=== PATIENT | female | born 1965 | race Caucasian/White ===

== ENCOUNTER → 2016-05-18 | Outpatient (CLI) | payer OTHER ==
[2016-05-18 08:31] LABS: Basophils # (A) 0.1 k/uL (0-0.2); Basophils % (A) 1 %; CH 31.8; Eosinophils # (A) 0.1 k/uL (0-0.7); Eosinophils % (A) 2 %; HCT 38.6 % (34.0-46.0); HDW 2.34; HGB 12.6 gm/dL (11.4-16.0); Luc # (Auto) 0.09; Luc % (Auto) 2; Lymphocytes # (A) 1.1 k/uL (1.0-4.8); Lymphocytes % (A) 20 %; MCH 31.5 pg (25.0-35.0); MCHC 32.6 g/dL (31.0-37.0); MCV 96.6 fL (80.0-100.0); Mean Platelet Volume 7.2; Monocytes # (A) 0.4 k/uL (0-1.0); Monocytes % (A) 7 %; Neutrophils # (A) 3.6 k/uL (1.3-7.7); Neutrophils % (A) 68 %; RBC 3.99 m/uL (3.80-5.40); RDW 12.1 % (11.5-15.5); WBC 5.3 k/uL (3.8-10.6); WBC (Perox) 5.54
== END | disposition home or self-care (01) ==
LOC: LABPAT 07:42
PROVIDERS: ATTEND Obstetrics & Gynecology
DX: Z01.810 Encounter for preprocedural cardiovascular examination (principal)
CPT/HCPCS: 85025

== ENCOUNTER → 2016-05-18 | Outpatient (CLI) | payer OTHER | END | disposition home or self-care (01) | LOC: LABWHC1 07:41 | PROVIDERS: ATTEND Obstetrics & Gynecology | DX: E78.5 Hyperlipidemia, unspecified (principal) | CPT/HCPCS: 36415; 80061; 84439; 84443 ==

== ENCOUNTER 2016-05-23 06:31 | Day surgery (SDC) | payer BC, OTHER ==
--- NOTE | 2016-05-20 07:37 | P.HPOB ---
History of Present Illness H&P Date: 05/20/16 Chief Complaint: Endometrial thickening, Tamoxifen use This patient is a pleasant 50 yr female who has a history of breast cancer and has been on Tamoxifen for recurrence prevention. Surveillance ultrasounds have been normal with the exception of her most recent ultrasound which showed the endometrium to be 1.3cm. She had a D&C in 2013 for abnormal cells and surgical findings at the time showed cervical stenosis and Ashermans Syndrome (?from C/S). Patient has had no bleeding and we discussed surveillance with serial ultrasounds versus a repeat D&C, she is requesting a repeat D&C. Review of Systems Constitutional: Denies chills, Denies fever Ears, nose, mouth and throat: Reports neck lump (Known lymphadenopathy), Denies headache, Denies sore throat Cardiovascular: Denies chest pain, Denies shortness of breath Respiratory: Denies cough Gastrointestinal: Denies abdominal pain, Denies diarrhea, Denies nausea, Denies vomiting Genitourinary: Denies dysuria, Denies hematuria Menstruation: Reports amenorrhea Musculoskeletal: Denies myalgias Integumentary: Denies pruritus, Denies rash Neurological: Denies numbness, Denies weakness Psychiatric: Denies anxiety, Denies depression Past Medical History Past Medical History: Cancer Additional Past Medical History / Comment(s): 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 BREAST CANCER 2009 WITH CHEMO AND RADIATION. 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 Right leg wound surgery. Hysteroscopy D&C 2013 Past Anesthesia/Blood Transfusion Reactions: No Reported Reaction, Family History of Problems w/ Anesthesia Additional Past Anesthesia/Blood Transfusion Reaction / Comment(s): FATHER HAD DIFFICULTY WAKING UP. Past Psychological History: No Psychological Hx Reported Smoking Status: Never smoker Past Alcohol Use History: Occasional Past Drug Use History: None Reported - Past Family History Father Family Medical History: Cancer Additional Family Medical History / Comment(s): Prostate and skin cancer. Mother Family Medical History: Cancer Additional Family Medical History / Comment(s): Skin cancer. Sister(s) Family Medical History: Cancer Additional Family Medical History / Comment(s): BREAST CA Medications and Allergies Home Medications Medication Instructions Recorded Confirmed Type Cholecalciferol [Vitamin D3] 2 cap PO DAILY 03/11/14 03/18/14 History Flaxseed [Flaxseed Oil] 2,000 mg PO DAILY 03/11/14 03/18/14 History Multivit with Calcium,Iron,Min 1 tab PO DAILY 03/11/14 03/18/14 History [Women's Daily Multivitamin] Tamoxifen [Nolvadex] 20 mg PO HS 03/11/14 03/20/14 History Allergies Allergy/AdvReac Type Severity Reaction Status Date / Time codeine AdvReac Intermediate Vomiting Verified 03/18/14 16:35 Exam - OBG Physical Exam Abdomen: bowel sounds normal, no diffuse tenderness, no bruit present, no guarding noted, no hepatomegaly, no splenomegaly, no mass Vulva: both: normal Vagina: atrophic mucosa Cervix: no lesion, no discharge Uterus: normal size Adnexa: both: normal Results Ultrasound on April 20 showed endometrium to be 1.3cm Assessment and Plan (1) Endometrial thickening on ultra sound Narrative/Plan: This is a pleasant 50yr female with endometrial thickening on surveillance ultrasound for Tamoxifen use. Patient has requested hysteroscopy and D&C. She also has known cervical stenosis and Asherman's Syndrome of unknown etiology. Plan is hysteroscopy and D&C. She and I have discussed this surgery and risks: infection, bleeding, possible uterine perforation. She also understands that due to her cervical stenosis/Asherman's Syndrome that she is at increased risks or I maybe unable to get into the uterine cavity. All of the patient's questions were answered and a written consent was obtained. Status: Acute (2) Use of tamoxifen (Nolvadex) Status: Acute (3) Asherman's syndrome Status: Acute
[2016-05-20 11:25] VITALS: BMI 23.9
[~2016-05-23 06:31] MED LIST: DEXAMETHASONE SOD PHOSPHATE 10 MG/ML 1 ML VIAL IV ONE; HYDROmorphone 1 MG/ML 1 ML SYRINGE IVP PRN; LACTATED RINGERS 1,000 ML IV SCH; LIDOCAINE 1% 20 ML VIAL (10MG/ML) FOR IV START INTRADERMA PRN; ONDANSETRON 4 MG/2 ML VIAL IVP ONE; Pre Op ABX Message 1 EACH MISC MISCELLANE ONE; SCOPOLAMINE 1.5MG/72HR PATCH TRANSDERM ONE
[2016-05-23] MEDS ORDERED: LIDOCAINE 1% 20 ML VIAL (10MG/ML) FOR IV START INTRADERMA ONE (07:02)
[2016-05-23] MEDS ORDERED: PROPOFOL 10 MG/ML 20 ML VIAL IV ONE (07:23)
[2016-05-23] MEDS ORDERED: LIDOCAINE 1% INJ 10MG/ML (20 ML MDV) ONE (07:23)
[2016-05-23] MEDS ORDERED: fentaNYL (PF) 50 MCG/ML 2 ML AMP ONE (07:23)
[2016-05-23] MEDS ORDERED: KETOROLAC 30 MG/ML 1 ML VIAL ONE (07:23)
[2016-05-23] MEDS ORDERED: MIDAZOLAM 2 MG/2 ML VIAL ONE (07:23)
--- NOTE | 2016-05-23 07:53 | P.OP ---
Date of Procedure: 05/23/16 Preoperative Diagnosis: #1: Abnormal endometrial thickening on tamoxifen. #2: Cervical stenosis and known Asherman syndrome Postoperative Diagnosis: Same Procedure(s) Performed: #1: Hysteroscopy. #2: Dilation and curettage. Anesthesia: MAC Surgeon: Kaden Hanson Estimated Blood Loss (ml): 10 Pathology: other (Endocervical and uterine curettings.) Condition: stable Disposition: PACU Indications for Procedure: Please see dictated H&P for intimate details of this patient's admission. In brief summary this is a pleasant 50-year-old 1 para 0 female who presents for hysteroscopy D&C secondary to abnormal endometrial thickening on ultrasound and tamoxifen use. Patient also has no cervical stenosis and Asherman syndrome, supposedly from previous section. Patient understands this surgery and risks including risks of infection, bleeding, possible uterine perforation. All the patient's questions are answered written consent is obtained. Operative Findings: This patient had a very atrophic appearing endocervix and uterine cavity with evidence of previous scarring as noted on previous hysteroscopy. There was no evidence of any abnormal growths or precancerous lesions. Description of Procedure: This patient is taken to the operating room where she is laid in the supine position. She subsequent undergoes general mask anesthesia without incident. With an adequate level of anesthesia she's placed in the dorsal lithotomy position. She has a vaginal, perineal, prep and drape. With this done examination under anesthesia shows uterus to be mid position and very small. The bladder is drained for 10 mL of clear urine. A weighted speculum was placed in the posterior vagina. The anterior lip of the cervix is grabbed with an Allis clamp. At this time I tried to place a uterine sound and the uterine cavity however cannot be passed. Using a hemostat to open up the cervix. I then bring the hysteroscope into the field and using saline solution, I used the hysteroscope to guide up into the uterine cavity. This is done with care and attention. I am able to enter the lower uterine segment and uterine cavity and then finally unable to see the entire uterine cavity. It appears very atrophic and scarred as previously described. There is no evidence of any abnormal growths, fibroids, or polyps. I did already do an endocervical curetting, at this time I dilate the cervix more to allow a curette easily and the uterine cavity and a vigorous sharp curettage of all 4 quadrants is done. There is scant tissue consistent with endometrial atrophy. With this done the procedure is terminated. The Allis clamp and weighted speculum was removed. All counts are correct 3. There are no complications. Patient is awakened from anesthesia and taken to the recovery room in satisfactory condition.
[2016-05-23 07:59] VITALS: TEMP 97.4
[2016-05-23 08:55] VITALS: RESP 16
[2016-05-23 09:28] VITALS: BP 105/67; PULSE 62
== END 2016-05-23 09:33 | disposition home or self-care (01) ==
LOC: OR 06:31
PROVIDERS: ATTEND Obstetrics & Gynecology
DX: R93.8 Abnormal findings on diagnostic imaging of other specified body structures (principal); N85.6 Intrauterine synechiae; N88.2 Stricture and stenosis of cervix uteri; N85.9 Noninflammatory disorder of uterus, unspecified; Z79.810 Long term (current) use of selective estrogen receptor modulators (SERMs); Z85.3 Personal history of malignant neoplasm of breast; Z92.21 Personal history of antineoplastic chemotherapy; Z92.3 Personal history of irradiation; Z90.11 Acquired absence of right breast and nipple; Z79.899 Other long term (current) drug therapy; Z79.1 Long term (current) use of non-steroidal anti-inflammatories (NSAID)
CPT/HCPCS: 88305; 58558; J2250; J1100; J2405; J2001; J3010; J1885; J1170; J2704

== ENCOUNTER → 2016-10-11 | Outpatient (CLI) | payer OTHER ==
--- NOTE | 2016-10-12 07:28 | MM ---
Reason for exam: follow-up at short interval from prior study. Last mammogram was performed 8 months ago. History: Patient has history of other cancer at age 48, has history of breast cancer at age 44, and had first child at age 40. Family history of breast cancer in maternal grandmother at age 82, breast cancer in sister at age 47, and breast cancer in paternal grandmother at age 65. Malignant US right guided VAD of the right breast, December 24, 2009. Mastectomy of the right breast, 2009. Chemotherapy, 2009. Radiation therapy, 2009. Excisional biopsy of the right breast, 1986. Took hormonal contraceptives for 2 years beginning at age 41. Taking antineoplastic for 6 years. Physical Findings: Nurse did not find any significant physical abnormalities on exam. MG 3D Diag Mammo W/Cad LT CC and MLO view(s) were taken of the left breast. Prior study comparison: February 18, 2016, left breast MG 3d diag mammo w/cad LT. The breast tissue is heterogeneously dense. This may lower the sensitivity of mammography. No significant new findings when compared with previous films. These results were verbally communicated with the patient and result sheet given to the patient on 10/11/16. ASSESSMENT: Benign, BI-RAD 2 RECOMMENDATION: Follow-up diagnostic mammogram of the left breast in 1 month.
== END | disposition home or self-care (01) ==
LOC: RADMAMWWP 14:17
PROVIDERS: ATTEND Internal Medicine Hematology & Oncology
DX: R92.8 Other abnormal and inconclusive findings on diagnostic imaging of breast (principal); Z85.3 Personal history of malignant neoplasm of breast; Z90.11 Acquired absence of right breast and nipple
CPT/HCPCS: G0206; G0279

== ENCOUNTER → 2017-03-15 | Outpatient (CLI) | payer OTHER ==
--- NOTE | 2017-03-15 15:18 | NM ---
EXAMINATION TYPE: NM bone scan whole body DATE OF EXAM: 03/15/2017 COMPARISON: Prior bone scan dated 01/07/2010 HISTORY: Breast cancer and back pain Delayed whole-body scanning was performed following the injection of 28 mCi Tc 99m MDP. Images acqui red 3 hours post injection. FINDINGS: Soft tissue uptake is normal. Mild spinal curvature is again noted. Uptake within the knee, ankles, k nees, wrists, shoulders is likely degenerative. No abnormal increased or decreased radiopharmaceutica l uptake to suggest metastatic disease. IMPRESSION: Essentially stable exam. No suspicious abnormality is evident. Degenerative changes.
== END | disposition home or self-care (01) ==
LOC: RADNMMAIN 10:23
PROVIDERS: ATTEND Internal Medicine Hematology & Oncology
DX: R93.7 Abnormal findings on diagnostic imaging of other parts of musculoskeletal system (principal); C50.411 Malignant neoplasm of upper-outer quadrant of right female breast; M54.9 Dorsalgia, unspecified
CPT/HCPCS: 78306; A9503

== ENCOUNTER → 2017-08-19 | Outpatient (CLI) | payer OTHER ==
[2017-08-19 11:13] LABS: T4, Free (Free Thyroxine) 1.06 ng/dL (0.78-2.19)
== END | disposition home or self-care (01) ==
LOC: LABWHC1 10:20
PROVIDERS: ATTEND Obstetrics & Gynecology
DX: E78.4 Other hyperlipidemia (principal)
CPT/HCPCS: 36415; 80061; 82947; 84439; 84443; 84479

== ENCOUNTER → 2017-09-26 | Outpatient (CLI) | payer OTHER ==
[2017-09-26 11:27] LABS: Basophils % (A) 1 %; Eosinophils # (A) 0.2 k/uL (0-0.7); Eosinophils % (A) 3 %; HCT 36.3 % (34.0-46.0); HGB 11.7 gm/dL (11.4-16.0); Lymphocytes # (A) 1.1 k/uL (1.0-4.8); Lymphocytes % (A) 18 %; MCH 30.2 pg (25.0-35.0); MCHC 32.4 g/dL (31.0-37.0); MCV 93.3 fL (80.0-100.0); Mean Platelet Volume 6.6; Monocytes # (A) 0.4 k/uL (0-1.0); Monocytes % (A) 7 %; Neutrophils # (A) 4.1 k/uL (1.3-7.7); Neutrophils % (A) 69 %; Platelet Count 261 k/uL (150-450); RBC 3.89 m/uL (3.80-5.40); RDW 13.1 % (11.5-15.5); WBC 5.9 k/uL (3.8-10.6)
[2017-09-26 11:38] LABS: Appearance,Urine Clear (Clear); Bilirubin,Urine Negative (Negative); Blood,Urine Negative (Negative); Color,Urine Colorless; Glucose,Urine (UA) Negative (Negative); Ketones,Urine Negative (Negative); Leukocyte Esterase,Urine Trace (Negative); Nitrite,Urine Negative (Negative); Protein,Urine Negative (Negative); Specific Gravity,Urine 1.002 (1.001-1.035); Squamous Epithelial Cell,Urine <1 /hpf (0-4); Urobilinogen,Urine <2.0 mg/dL (<2.0); WBC,Urine 3 /hpf (0-5)
[2017-09-26 11:54] LABS: T4, Free (Free Thyroxine) 1.07 ng/dL (0.78-2.19)
[2017-09-26 16:51] LABS: Vitamin D 25 Hydroxy 65.7 ng/mL (30.0-100.0)
[2017-09-26 17:14] LABS: Thyroid Peroxidase Antibodies <28.0 U/mL (0.0-60.0)
[2017-09-26 17:23] LABS: Hemoglobin A1C 5.6 % (4.0-6.0); Immunoglobulin E 4.53 IU/mL (0.00-114.00); Iron Saturation 12.94 (12.00-45.00)
[2017-09-27 15:05] LABS: Ceruloplasmin 46.2 mg/dL (20.0-60.0); Immunoglobulin A 43.4 mg/dL (60.0-350.0)
== END | disposition home or self-care (01) ==
LOC: LABWHC1 10:29
PROVIDERS: ATTEND Nurse Practitioner Family
DX: E55.9 Vitamin D deficiency, unspecified (principal); R73.09 Other abnormal glucose; R68.89 Other general symptoms and signs; I70.90 Unspecified atherosclerosis; D89.82 Autoimmune lymphoproliferative syndrome [ALPS]; D68.8 Other specified coagulation defects; R53.83 Other fatigue; M79.7 Fibromyalgia; E34.9 Endocrine disorder, unspecified; E78.00 Pure hypercholesterolemia, unspecified; E78.5 Hyperlipidemia, unspecified; E03.9 Hypothyroidism, unspecified; D84.9 Immunodeficiency, unspecified; D89.9 Disorder involving the immune mechanism, unspecified; D50.9 Iron deficiency anemia, unspecified; N95.1 Menopausal and female climacteric states; E88.9 Metabolic disorder, unspecified; E58 Dietary calcium deficiency; E59 Dietary selenium deficiency; E60 Dietary zinc deficiency; E61.6 Vanadium deficiency; T56.94XA Toxic effect of unspecified metal, undetermined, initial encounter
CPT/HCPCS: 36415; 81001; 82306; 82378; 82390; 82525; 82607; 82728; 82784; 82785; 83036; 83090; 83540; 83550; 83695; 83735; 84132; 84207; 84425; 84439; 84443; 84481; 84482; 84630; 85025; 85384; 86141; 86300; 86376; 86800

== ENCOUNTER → 2017-10-20 | Outpatient (CLI) | payer OTHER ==
[2017-10-21 12:44] LABS: Immunoglobulin A 39.3 mg/dL (60.0-350.0)
[2017-10-23 14:30] LABS: Protein, Total 7.4 g/dL (6.2-8.2)
[2017-10-24 13:00] LABS: ALT 26 U/L (9-52); AST 20 U/L (14-36); Albumin 4.2 g/dL (3.5-5.0); Alkaline Phosphatase 76 U/L (38-126); Anion Gap 10 mmol/L; Blood Urea Nitrogen 15 mg/dL (7-17); Calcium 9.6 mg/dL (8.4-10.2); Carbon Dioxide 27 mmol/L (22-30); Chloride 103 mmol/L (98-107); Cholesterol 122 mg/dL (<200); Glucose 119 mg/dL (74-99); LDH 360 U/L (313-618); Phosphorus 4.3 mg/dL (2.5-4.5); Potassium 4.5 mmol/L (3.5-5.1); Sodium 140 mmol/L (137-145); Total Bilirubin 0.3 mg/dL (0.2-1.3); Total Protein 8.1 g/dL (6.3-8.2); Uric Acid 5.4 mg/dL (3.7-7.4)
== END | disposition home or self-care (01) ==
LOC: LABWHC1 08:07
PROVIDERS: ATTEND Internal Medicine
DX: C85.80 Other specified types of non-Hodgkin lymphoma, unspecified site (principal)
CPT/HCPCS: 36415; 80053; 82465; 82784; 83615; 84100; 84165; 84550; 85810; 86334

== ENCOUNTER → 2018-04-19 | Outpatient (CLI) | payer OTHER ==
--- NOTE | 2018-04-19 08:21 | MM ---
Reason for exam: additional evaluation requested from prior study. Last mammogram was performed 1 year ago. History: Patient has history of other cancer at age 48, has history of breast cancer at age 44, and had first child at age 40. Family history of breast cancer in maternal grandmother at age 82, breast cancer in sister at age 47, breast cancer in paternal grandmother at age 65, and breast cancer in cousin. Malignant US right guided VAD of the right breast, December 24, 2009. Mastectomy of the right breast, 2009. Chemotherapy, 2009. Radiation therapy, 2009. Excisional biopsy of the right breast, 1986. Took hormonal contraceptives for 2 years beginning at age 41. Taking antineoplastic beginning at age 44. Physical Findings: Nurse did not find any significant physical abnormalities on exam. MG 3D Diag Mammo W/Cad LT CC and MLO view(s) were taken of the left breast. Prior study comparison: April 13, 2017, left breast MG 3d follow up no charge LT. October 11, 2016, left breast MG 3d diag mammo w/cad LT. The breast tissue is heterogeneously dense. This may lower the sensitivity of mammography. There are benign appearing round, diffuse and grouped calcifications in the left breast. Asymmetric breast tissue left medial aspect, stable. There is no discrete abnormality. Large left axillary lymph nodes correlate with lymphoma known to patient. These results were verbally communicated with the patient and result sheet given to the patient on 04/19/18. ASSESSMENT: Benign, BI-RAD 2 RECOMMENDATION: Follow-up diagnostic mammogram of the left breast in 1 year.
== END | disposition home or self-care (01) ==
LOC: RADMAMWWP 07:24
PROVIDERS: ATTEND Internal Medicine Hematology & Oncology
DX: Z08 Encounter for follow-up examination after completed treatment for malignant neoplasm (principal); Z85.3 Personal history of malignant neoplasm of breast; Z90.11 Acquired absence of right breast and nipple
CPT/HCPCS: 77061; 77065

== ENCOUNTER → 2019-04-23 | Outpatient (CLI) | payer OTHER ==
--- NOTE | 2019-04-23 08:27 | MM ---
Reason for exam: additional evaluation requested from prior study. Last mammogram was performed 1 year ago. History: Patient is postmenopausal, has history of other cancer at age 48, has history of breast cancer at age 44, and had first child at age 40. Family history of breast cancer in maternal grandmother at age 82, breast cancer in sister at age 47, breast cancer in paternal grandmother at age 65, and breast cancer in cousin. Malignant US right guided VAD of the right breast, December 24, 2009. Mastectomy of the right breast, 2009. Chemotherapy, 2009. Radiation therapy, 2009. Excisional biopsy of the right breast, 1986. Took hormonal contraceptives for 2 years beginning at age 41. Took antineoplastic for 7 years beginning at age 44. Physical Findings: Nurse did not find any significant physical abnormalities on exam. MG 3D Diag Mammo W/Cad LT CC and MLO view(s) were taken of the left breast. Prior study comparison: April 19, 2018, left breast MG 3d diag mammo w/cad LT. April 13, 2017, left breast MG 3d follow up no charge LT. The breast tissue is heterogeneously dense. This may lower the sensitivity of mammography. Benign appearing calcifications in the left breast. No suspicious abnormality. Left axillary adenopathy. These results were verbally communicated with the patient and result sheet given to the patient on 04/23/19. ASSESSMENT: Benign, BI-RAD 2 RECOMMENDATION: Follow-up diagnostic mammogram of the left breast in 1 year. Manage on a clinical basis with regard to left axillary adenopathy, known lymphoma. Recommend follow up with oncology.
== END | disposition home or self-care (01) ==
LOC: RADMAMWWP 07:37
PROVIDERS: ATTEND Internal Medicine Hematology & Oncology
DX: Z85.3 Personal history of malignant neoplasm of breast (principal)
CPT/HCPCS: 77061; 77065

== ENCOUNTER → 2020-06-05 | Outpatient (CLI) | payer OTHER ==
--- NOTE | 2020-06-05 11:58 | MM ---
Reason for exam: additional evaluation requested from prior study. Last mammogram was performed 1 year and 1 month ago. History: Patient is postmenopausal, has history of other cancer at age 48, has history of breast cancer at age 44, and had first child at age 40. Family history of breast cancer in maternal grandmother at age 82, breast cancer in sister at age 47, breast cancer in paternal grandmother at age 65, and breast cancer in cousin. Malignant US right guided VAD of the right breast, December 24, 2009. Mastectomy of the right breast, 2009. Chemotherapy, 2009. Radiation therapy, 2009. Excisional biopsy of the right breast, 1986. Took hormonal contraceptives for 2 years beginning at age 41. Took antineoplastic for 8 years beginning at age 44. Physical Findings: Nurse did not find any significant physical abnormalities on exam. MG 3D Diag Mammo W/Cad LT CC and MLO view(s) were taken of the left breast. Prior study comparison: April 23, 2019, left breast MG 3d diag mammo w/cad LT. April 19, 2018, left breast MG 3d diag mammo w/cad LT. The breast tissue is heterogeneously dense. This may lower the sensitivity of mammography. Stable benign calcifications. Enlarged lymph nodes consistent with lymph nodes. No significant new findings when compared with previous films. These results were verbally communicated with the patient and result sheet given to the patient on 06/05/20. ASSESSMENT: Benign, BI-RAD 2 RECOMMENDATION: Follow-up diagnostic mammogram of the left breast in 1 year. Manage patient on a clinical basis.
== END | disposition home or self-care (01) ==
LOC: RADMAMWWP 10:55
PROVIDERS: ATTEND Internal Medicine Hematology & Oncology
DX: Z08 Encounter for follow-up examination after completed treatment for malignant neoplasm (principal); Z85.3 Personal history of malignant neoplasm of breast
CPT/HCPCS: 77061; 77065

== ENCOUNTER → 2020-08-11 | Outpatient (CLI) | payer OTHER ==
[2020-08-11 07:16] LABS: African American GFR (CKD) >90 (>60 ml/min/1.73 sqM); Blood Urea Nitrogen 13 mg/dL (7-17); Non-African American GFR(CKD) >90 (>60 ml/min/1.73 sqM)
--- NOTE | 2020-08-11 08:51 | CT ---
EXAMINATION TYPE: CT soft tissue neck w con DATE OF EXAM: 08/11/2020 COMPARISON: None HISTORY: Lymphoma CT DLP: 400.91 mGycm CONTRAST: CT scan of the neck is performed with IV Contrast, patient injected with 100 mL of Isovue 300. Contrast enhanced CT of the neck was performed from the skull base through the lung apices. AIRWAY: The supraglottic, glottic, and subglottic portions of the airway appear patent and free of mass. SALIVARY GLANDS: The submandibular and parotid glands are free of mass or inflammatory process. THYROID GLAND: No nodules or masses seen. LYMPH NODES: There are multiple lymph nodes noted within the internal jugular chains bilaterally the largest on the left measures 1.4 cm and the largest on the right and 1 cm. Posterior triangle also de monstrates multiple lymph nodes measuring up to 1 cm on the left and 71 cm on the right. Lymph node i s noted adjacent to the left parotid gland measuring 1 cm. Supraclavicular adenopathy is also noted m easuring up to 1.7 cm on the left and up to 1 cm on the right. LUNG APICES: No nodule or mass is seen. OTHER: Vascular structures are patent. No significant degenerative change of the cervical spine. N o abscess seen. IMPRESSION: Adenopathy throughout the neck are compatible with the provided history of lymphoma.
--- NOTE | 2020-08-11 08:58 | CT ---
EXAMINATION TYPE: CT ChestAbdPelvis w con DATE OF EXAM: 08/11/2020 COMPARISON: January 07, 2010 HISTORY: lymphoma CT DLP: 1463.09 mGycm CONTRAST: CT scan of the chest, abdomen and pelvis is performed with Oral Contrast and with IV Contrast, patien t injected with 100 mL of Isovue 300. CT Chest: LUNGS: The lungs are clear and free of infiltrate or atelectasis. No pulmonary nodule or mass is det ected. No pleural effusion or CT evidence of interstitial lung disease. MEDIASTINUM: Thoracic aorta is of normal caliber. The heart is not enlarged. Multiple paratracheal, AP window and subcarinal lymph nodes all measuring 1 cm or less. Para-aortic lymph node measuring 1 cm. HILAR STRUCTURES: No evidence for mass. No hilar adenopathy is appreciated. OTHER: Multiple left axillary lymph nodes measuring up to 1.4 cm. A few subcentimeter right axillary lymph nodes seen. Right cardiophrenic adenopathy measuring 1.[address] ABDOMEN AND PELVIS FINDINGS: LIVER/GB: No calcified gallstones. No space occupying hepatic lesion. Biliary tree is of normal ca liber. PANCREAS: No inflammation. No distinct mass. SPLEEN: No splenic enlargement. No lesion seen. ADRENALS: No nodule. No thickening. KIDNEYS/BLADDER: No hydronephrosis. No nephrolithiasis. No disctinct renal mass. BOWEL: Normal appendix. Normal bowel caliber. No inflammation. GENITAL ORGANS: No gross abnormality. LYMPH NODES: Adenopathy in the region of the gastrohepatic ligament measuring 1.8 cm. Periportal lymp h node mass measuring 4.6 x 1.7 cm with an additional mass measuring 3 x 2.1 cm. Celiac axis adenopat hy measuring up to 1.9 cm. Left periaortic lymph nodes measuring up to 1.6 cm. Adenopathy anterior to the distal IVC measuring 2.6 cm. Aortoenteric caval adenopathy measuring 2 cm. Multiple lymph nodes within the small bowel mesentery measuring up to 1 cm. Right inguinal adenopathy measuring 4.3 cm. Le ft inguinal adenopathy measuring up to 1.1 cm. Right internal iliac adenopathy measuring 3.2 x 2.9 cm . Left iliac chain adenopathy measuring less than 1 cm. AORTA: No significant abnormality. OSSEOUS STRUCTURES: No significant abnormality is seen. OTHER: No significant additional abnormality is seen. IMPRESSION: 1. Adenopathy throughout the chest abdomen and pelvis compatible with the provided history of lymphom a.
== END | disposition home or self-care (01) ==
LOC: RADCTMAIN 06:29
PROVIDERS: ATTEND Internal Medicine Hematology & Oncology
DX: Z03.89 Encounter for observation for other suspected diseases and conditions ruled out (principal); C85.98 Non-Hodgkin lymphoma, unspecified, lymph nodes of multiple sites; C50.411 Malignant neoplasm of upper-outer quadrant of right female breast; R59.0 Localized enlarged lymph nodes; Z88.5 Allergy status to narcotic agent
CPT/HCPCS: 82565; 84520; 70491; 71260; 74177; 36415; Q9967

== ENCOUNTER → 2021-04-28 | Outpatient (CLI) | payer OTHER ==
--- NOTE | 2021-04-28 19:58 | BD ---
EXAMINATION TYPE: Axial Bone Density DATE OF EXAM: 04/28/2021 COMPARISON: 2017 CLINICAL HISTORY: Postmenopausal screening Height: 63 Weight: 132.8 FRAX RISK QUESTIONS: Alcohol (3 or more units per day): no Family History (Parent hip fracture): yes Glucocorticoids (More than 3mos): no (Ex: prednisone, prednisolone, methylprednisolone, dexamethasone, and hydrocortisone). History of Fracture in Adulthood: no Secondary Osteoporosis: 1. Type 1 Diabetes: no 2. Hyperthyroidism: no 3. Menopause before 45: yes 4. Malnutrition: no 5. Chronic liver disease: no Rheumatoid Arthritis: yes Current Tobacco Use: no RISK FACTORS HISTORY OF: Surgery to Spine/Hip(right/left)/Wrist (right/left): no Family History of Osteoporosis: no Active: yes Diet low in dairy products/other sources of calcium: yes Postmenopausal woman: yes Lost more than 2 inches in height since high school: no MEDICATIONS: none Additional History: EXAM MEASUREMENTS: Bone mineral densitometry was performed using the [employer] ([employer]G) System. Bone mineral density as measured about the Lumbar spine is: ----- L1-L4(G/cm2): 1.097 T Score Values are as follows: ----- L2: -0.6 ----- L3: 1.1 ----- L4: -1.1 ----- L1-L4: -0.7 Bone mineral density has: decreased -2.2 % since study of: 04.13.2017 Bone mineral density about the R hip (g/cm2): 0.896 Bone mineral density about the L hip (g/cm2): 0.895 T Score values are as follows: -----R Neck: -1.0 -----L Neck: -1.0 -----R Total: -0.4 -----L Total: -0.3 Bone mineral density has: decreased -2.9 % since study of: 04.13.2017 IMPRESSION: Normal (Values between +1 and -1 indicate normal bone mass). However, note that measurements border on osteopenia. Consider repeating this study in 5 years or sooner if there is some new clinical indic ation. NOTE: T-SCORE=SD OF THE YOUNG ADULT MEAN.
== END | disposition home or self-care (01) ==
LOC: RADBDWWP 08:21
PROVIDERS: ATTEND Obstetrics & Gynecology
DX: Z78.0 Asymptomatic menopausal state (principal)
CPT/HCPCS: 77080

== ENCOUNTER → 2021-06-07 | Outpatient (CLI) | payer OTHER ==
--- NOTE | 2021-06-08 08:12 | MM ---
Reason for exam: screening (asymptomatic). Last mammogram was performed 1 year ago. History: Patient is postmenopausal, has history of other cancer at age 48, has history of breast cancer at age 44, and had first child at age 40. Family history of breast cancer in maternal grandmother at age 82, breast cancer in paternal grandmother at age 65, breast cancer in cousin, and breast cancer in sister at age 47. Malignant US right guided VAD of the right breast, December 24, 2009. Mastectomy of the right breast, 2009. Chemotherapy, 2009. Radiation therapy, 2009. Excisional biopsy of the right breast, 1986. Took hormonal contraceptives for 2 years beginning at age 41. Took antineoplastic for 8 years beginning at age 44. Physical Findings: A clinical breast exam by your physician is recommended on an annual basis and results should be correlated with mammographic findings. MG 3D Scr Wesley Unilateral W/Cad Bilateral CC and MLO view(s) were taken. Prior study comparison: June 05, 2020, left breast MG 3d diag mammo w/cad LT. April 23, 2019, left breast MG 3d diag mammo w/cad LT. April 19, 2018, left breast MG 3d diag mammo w/cad LT. October 11, 2016, left breast MG 3d diag mammo w/cad LT. The breast tissue is heterogeneously dense. This may lower the sensitivity of mammography. There are benign appearing round calcifications in the left breast. Stable massive left axillary adenopathy redemonstrated, correlates with known lymphoma CT 08/11/20. ASSESSMENT: Benign, BI-RAD 2 RECOMMENDATION: Follow-up diagnostic mammogram of the left breast in 1 year.
== END | disposition home or self-care (01) ==
LOC: RADMAMWWP 11:14
PROVIDERS: ATTEND Internal Medicine Hematology & Oncology
DX: Z12.31 Encounter for screening mammogram for malignant neoplasm of breast (principal); C50.411 Malignant neoplasm of upper-outer quadrant of right female breast; Z85.3 Personal history of malignant neoplasm of breast; N95.1 Menopausal and female climacteric states
CPT/HCPCS: 77067

== ENCOUNTER → 2022-08-17 | Outpatient (CLI) | payer OTHER ==
--- NOTE | 2022-08-17 14:10 | MM ---
Reason for Exam: Clinical finding. Last mammogram was performed 1 year(s) and 3 month(s) ago. Patient History: Menarche at age 14. First Full-Term at age 40. Late child-bearing (after 30). Postmenopausal. Other cancer, age 48. Breast cancer, age 44. Hormonal Contraceptives, starting at age 41 for 2 years. 1986, Excisional Biopsy on the Right side. 2009, Mastectomy on the Right side. 12/24/2009, Malignant Core Biopsy on the right side. 2009, Chemotherapy. 2009, Radiation Therapy. Paternal grandmother had breast cancer, age 65. Maternal grandmother had breast cancer, age 82. Maternal cousin had breast cancer. Sister had breast cancer, age 47. Prior Study Comparison: 04/23/2019 Left Diagnostic Mammogram, [facility]. 06/05/2020 Left Diagnostic Mammogram, [facility]. 06/07/2021 Bilateral Screening Mammogram, [facility]. Tissue Density: Left: The breast tissue is heterogeneously dense. This may lower the sensitivity of mammography. Findings: Analyzed By CAD. No new suspicious mass or architectural distortion within the left breast. No suspicious group of calcifications. Benign-appearing round calcifications redemonstrated within the left breast. Stable massive left axillary adenopathy redemonstrated and correlating to known lymphoma. Overall Assessment: Benign, BI-RAD 2 Management: Screening Mammogram of the left breast in 1 year. A clinical breast exam by your physician is recommended on an annual basis and results should be correlated with mammographic findings. This exam should not preclude additional follow-up of suspicious palpable abnormalities. Results were given to the patient verbally at the time of exam. Electronically signed and approved by: Quincy Gutierrez D.O.
== END | disposition home or self-care (01) ==
LOC: RADMAMWWP 07:39
PROVIDERS: ATTEND Internal Medicine
DX: C50.911 Malignant neoplasm of unspecified site of right female breast (principal); Z78.0 Asymptomatic menopausal state; Z80.3 Family history of malignant neoplasm of breast
CPT/HCPCS: 77061; 77065

== ENCOUNTER → 2023-08-29 | Outpatient (CLI) | payer OTHER ==
--- NOTE | 2023-08-30 13:38 | MM ---
Reason for Exam: Hx of breast cancer, mastectomy. Last screening mammogram was performed 12 month(s) ago. Patient History: Menarche at age 14. First Full-Term at age 40. Late child-bearing (after 30). Postmenopausal. Other cancer, age 48. Breast cancer, age 44. Hormonal Contraceptives, starting at age 41 for 2 years. 1986, Excisional Biopsy on the Right side. 2009, Mastectomy on the Right side. 12/24/2009, Malignant Core Biopsy on the right side. 2009, Chemotherapy. 2009, Radiation Therapy. Paternal grandmother had breast cancer, age 65. Maternal grandmother had breast cancer, age 82. Maternal cousin had breast cancer. Sister had breast cancer, age 47. Prior Study Comparison: 04/13/2017 Left Diagnostic Mammogram, [facility]. 04/19/2018 Left Diagnostic Mammogram, [facility]. 04/23/2019 Left Diagnostic Mammogram, [facility]. 06/05/2020 Left Diagnostic Mammogram, [facility]. 06/07/2021 Bilateral Screening Mammogram, [facility]. 08/17/2022 Left MG 3D diag mammo w/cad LT, [facility]. Tissue Density: Left: The breasts are heterogeneously dense, which may obscure small masses. lymphoma. Findings: Analyzed By CAD. There is no suspicious group of microcalcifications or new suspicious mass in either breast. Left axillary adenopathy redemonstrated and strict clinical correlation recommended. Overall Assessment: Benign, BI-RAD 2 Management: Screening Mammogram of both breasts in 1 year. . Patient should continue monthly self-breast exams. A clinical breast exam by your physician is recommended on an annual basis. This exam should not preclude additional follow-up of suspicious palpable abnormalities. Note on Kelly scores and lifetime risk: 1. A Kelly score greater than 3% is considered moderate risk. If this is the case, consider specialist referral to assess eligibility for a risk reducing agent. 2. If overall lifetime risk for the development of breast cancer is 20% or higher, the patient may qualify for future screening with alternating mammogram and breast MRI. Electronically signed and approved by: Bhavik Meyer M.D. Radiologis
== END | disposition home or self-care (01) ==
LOC: RADMAMWWP 07:21
PROVIDERS: ATTEND Internal Medicine Hematology & Oncology
DX: Z12.31 Encounter for screening mammogram for malignant neoplasm of breast (principal); C85.98 Non-Hodgkin lymphoma, unspecified, lymph nodes of multiple sites; C50.411 Malignant neoplasm of upper-outer quadrant of right female breast; D47.2 Monoclonal gammopathy; F41.9 Anxiety disorder, unspecified; Z80.3 Family history of malignant neoplasm of breast; Z78.0 Asymptomatic menopausal state
CPT/HCPCS: 77067

== ENCOUNTER 2023-11-14 16:48 | Inpatient (IN) | payer OTHER ==
--- NOTE | 2023-11-14 17:27 | ED ---
Allergic Reaction HPI - General Source: patient, RN notes reviewed Mode of arrival: ambulatory Limitations: no limitations <Yolanda Helton - Last Filed: 11/14/23 17:23> <Eder Dotson - Last Filed: 11/14/23 21:05> - General Chief complaint: Allergic Reaction Stated complaint: allergic reaction Time Seen by Provider: 11/14/23 17:23 - History of Present Illness Initial Comments: Quick Note: This is a 58-year-old female who presents to the emergency department for a possible allergic reaction. Patient receives chemotherapy every 26 days and received her third round of chemotherapy today. Shortly after receiving it she started to get short of breath and dizzy. They noticed that her blood pressure dropped and she developed a fever. They gave her fluids and applied oxygen for her symptoms. She has not had any reactions to chemo prior to today. (Yolanda Helton) Dictation was produced using schoox dictation software. please excuse any grammatical, word or spelling errors. Chief Complaint: 58-year-old female presents to the emergency department after infusion reaction History of Present Illness: Patient is a 58-year-old female she has past medical history of lymphoma. She was at the infusion center today at infusion with Rituxan. Patient had a reaction all of a sudden started to become tachycardic and fever and chills. Rituxan infusion was completed patient was started on a different chemo medication when she became slightly worse. The infusion was discontinued patient was brought to the emergency department. Dr. Almeida was contacted and evaluated the patient. I did speak with Dr. Almeida her oncologist states that patient's symptoms likely from infusion reaction. Patient states that she feels some chills. Denies any shortness of breath. No chest pain. The ROS documented in this emergency department record has been reviewed and confirmed by me. Those systems with pertinent positive or negative responses have been documented in the HPI. All other systems are other negative and/or noncontributory. (Eder Dotson) - Related Data Home Medications Medication Instructions Recorded Confirmed Multivit with Calcium,Iron,Min 1 tab PO DAILY 03/11/14 05/23/16 [Women's Daily Multivitamin] Tamoxifen [Nolvadex] 20 mg PO DAILY 03/11/14 05/23/16 Biocleanse 2 tab PO DAILY 05/20/16 05/23/16 L.acidoph,Paracasei, B.lactis 2 each PO DAILY 05/20/16 05/23/16 [Probiotic] Previous Rx's Medication Instructions Recorded Ibuprofen [Motrin] 600 mg PO Q6HR PRN #40 tab 05/23/16 Allergies Allergy/AdvReac Type Severity Reaction Status Date / Time codeine AdvReac Intermediate Vomiting Verified 04/22/22 10:44 Review of Systems ROS Other: All systems not noted in ROS Statement are negative. <Yolanda Helton - Last Filed: 11/14/23 17:23> ROS Other: All systems not noted in ROS Statement are negative. <Eder Dotson - Last Filed: 11/14/23 21:05> ROS Statement: Those systems with pertinent positive or pertinent negative responses have been documented in the HPI. 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 BREAST CANCER 2009 WITH CHEMO AND RADIATION, STATES NEW DIAGNOSIS OF MARGINAL ZONE LYMPHOMA. ABNORMAL PAP SMEAR. History of Any Multi-Drug Resistant Organisms: None Reported Past Surgical History: Breast Surgery Additional Past Surgical History / Comment(s): Right breast mastectomy in 2009. Right leg wound surgery. Past Anesthesia/Blood Transfusion Reactions: Family History of Problems w/ Anesthesia, No Reported Reaction Additional Past Anesthesia/Blood Transfusion Reaction / Comment(s): FATHER HAD DIFFICULTY WAKING UP. Past Psychological History: No Psychological Hx Reported Smoking Status: Never smoker Past Alcohol Use History: Occasional Past Drug Use History: None Reported - Past Family History Father Family Medical History: Cancer Additional Family Medical History / Comment(s): Prostate and skin cancer. Mother Family Medical History: Cancer Additional Family Medical History / Comment(s): Skin cancer. Sister(s) Family Medical History: Cancer Additional Family Medical History / Comment(s): BREAST CA <Yolanda Helton - Last Filed: 11/14/23 17:23> General Exam Limitations: no limitations <Yolanda Helton - Last Filed: 11/14/23 17:23> <Eder Dotson - Last Filed: 11/14/23 21:05> - General Exam Comments Initial Comments: Visual Physical Exam Vital signs reviewed General: Well-appearing, nontoxic, no acute distress. Head: Normocephalic, atraumatic Eyes: PERRLA, EOMI ENT: Airway patent Chest: Nonlabored breathing Skin: No visual rash, normal skin tone Neuro: Alert and oriented 3 Musculoskeletal: No gross abnormalities (Yolanda Helton) PHYSICAL EXAM: General Impression: Alert and oriented x3, not in acute distress HEENT: Normocephalic atraumatic, extra-ocular movements intact, pupils equal and reactive to light bilaterally, mucous membranes moist. Cardiovascular: Heart regular rate and rhythm Chest: Able to complete full sentences, no retractions, no tachypnea Abdomen: abdomen soft, non-tender, non-distended, no organomegaly Musculoskeletal: Pulses present and equal in all extremities, no peripheral edema Motor: no focal deficits noted Neurological: CN II-XII grossly intact, no focal motor or sensory deficits noted Skin: Intact with no visualized rashes Psych: Normal affect and mood (Eder Dotson) Course Vital Signs 11/14/23 11/14/23 11/14/23 17:16 18:31 18:45 Temperature 100.8 F H Pulse Rate 131 H 125 H Pulse Rate [ Chief Security Officer ] Respiratory 18 20 20 Rate Blood Pressure 85/45 110/60 Blood Pressure [Left Arm Supine] O2 Sat by Pulse 99 100 Oximetry 11/14/23 11/14/23 19:00 20:55 Temperature 100.5 F H 102.3 F H Pulse Rate 125 H Pulse Rate [ 124 H Chief Security Officer ] Respiratory 20 18 Rate Blood Pressure 111/54 Blood Pressure 99/56 [Left Arm Supine] O2 Sat by Pulse 98 Oximetry Medical Decision Making <Yolanda Helton - Last Filed: 11/14/23 17:23> - Lab Data Result diagrams: 11/14/23 17:43 11/14/23 17:43 <Eder Dotson - Last Filed: 11/14/23 21:05> - Medical Decision Making I performed the QuickNote portion of this chart. Signed Yolanda Helton PA-C. (Yolanda Helton) Was pt. sent in by a medical professional or institution ([facility], FUR GRADER, urgent care, hospital, or longterm...) When possible be specific @ -No Did you speak to anyone other than the patient for history (EMS, parent, family, police, friend...)? What history was obtained from this source @ -Spoke with Dr. Almeida regarding patient's infusion reaction Did you review nursing and triage notes (agree or disagree)? Why? @ -I reviewed and agree with nursing and triage notes Were old charts reviewed (outside hosp., previous admission, EMS record, old EKG, old radiological studies, urgent care reports/EKG's, longterm records)? Report findings @ -No old charts were reviewed Differential Diagnosis (chest pain, altered mental status, abdominal pain women, abdominal pain men, vaginal bleeding, musculoskeletal, weakness, fever, dyspnea, syncope, headache, dizziness, GI bleed, back pain, seizure, CVA, palpatations, mental health)? @ -Differential Fever: Pneumonia, viral URI, endocarditis, myocarditis, pericarditis, otitis, sinusitis, peritonsillar Abscess, retropharyngeal Abscess, epiglottitis, peritonitis, appendicitis, Laura cystitis, diverticulitis, hepatitis, colitis, UTI, PID, TOA, pyelonephritis, prostatitis, epididymitis, meningitis, encephalitis, pulmonary embolism, CVA, thyroid storm, pancreatitis, adrenal crisis, cavernous sinus thrombosis, this is not meant to be an all-inclusive list. EKG interpreted by me (3pts min.). @ -See above X-rays interpreted by me (1pt min.). @ -None done CT interpreted by me (1pt min.). @ -None done U/S interpreted by me (1pt. min.). @ -None done What testing was considered but not performed or refused? (CT, X-rays, U/S, labs)? Why? @ -None What meds were considered but not given or refused? Why? @ -None Was smoking cessation discussed for >3mins.? @ -No Were there social determinants of health that impacted care today? How? (Homelessness, low income, unemployed, alcoholism, drug addiction, transportation, low edu. Level, literacy, decrease access to med. care, assisted, rehab)? @ -No Was there de-escalation of care discussed even if they declined (Discuss DNR or withdrawal of care, Hospice)? DNR status @ -No What co-morbidities impacted this encounter? (DM, HTN, Smoking, COPD, CAD, Cancer, CVA, ARF, Chemo, Hep., AIDS, mental health diagnosis, sleep apnea, morbid obesity)? @ -Lymphoma Was patient admitted / discharged? Hospital course, mention meds given and route, prescriptions, significant lab abnormalities, going to OR and other pertinent info. @ -58-year-old female presents emergency department for infusion reaction. Vital signs upon arrival shows temperature 100.8. Repeat vital signs shows temperature of 102.3. Her heart rate is still sustained tachycardia at 120. Laboratory evaluation is within acceptable limits. Mild hypomagnesemia 1.5. Patient given Tylenol for fever. At this point she does not have any focal localizing symptoms blood cultures pending. Given patient's vitals she will be admitted for further care and monitoring. Case discussed with Dr. López request patient given dose of cefepime. Did you discuss the management of the patient with other professionals (professionals i.e. , PA, FUR GRADER, lab, RT, psych nurse, social media editor, corporate lawyer, teacher, business enterprise officer, case management specialist)? Give summary @ -See above Was critical care preformed (if so, how long)? @ -No Undiagnosed new problem with uncertain prognosis? @ -No Drug Therapy requiring intensive monitoring for toxicity (Heparin, Nitro, Insulin, Cardizem)? @ -No Were any procedures done? @ -No Diagnosis/symptom? Acute, or Chronic, or Acute on Chronic? Uncomplicated (without systemic symptoms) or Complicated (systemic symptoms)? @ -Infusion reaction Side effects of treatment? @ -No Exacerbation, Progression, or Severe Exacerbation? @ -No Poses a threat to life or bodily function? How? (Chest pain, USA, AR, pneumonia, PE, COPD, DKA, ARF, appy, cholecystitis, CVA, Diverticulitis, Homicidal, Suicidal, threat to staff... and all critical care pts) @ -yes (Eder Dotson) - Lab Data Lab Results 11/14/23 11/14/23 11/14/23 Range/Units 17:34 17:43 17:43 WBC 6.3 (3.8-10.6) k/uL RBC 3.17 L (3.80-5.40) m/uL Hgb 9.3 L (11.4-16.0) gm/dL Hct 28.9 L (34.0-46.0) % MCV 91.0 (80.0-100.0) fL MCH 29.3 (25.0-35.0) pg MCHC 32.2 (31.0-37.0) g/dL RDW 17.0 H (11.5-15.5) % Plt Count 41 L (150-450) k/uL MPV 10.6 Neutrophils % 92 % Lymphocytes % 2 % Monocytes % 5 % Eosinophils % 1 % Basophils % 0 % Neutrophils # 5.8 (1.3-7.7) k/uL Lymphocytes # 0.1 L (1.0-4.8) k/uL Monocytes # 0.3 (0-1.0) k/uL Eosinophils # 0.1 (0-0.7) k/uL Basophils # 0.0 (0-0.2) k/uL Manual Slide Review Performed Hypochromasia Slight Anisocytosis Slight Sodium 137 (137-145) mmol/L Potassium 3.6 (3.5-5.1) mmol/L Chloride 108 H (98-107) mmol/L Carbon Dioxide 19 L (22-30) mmol/L Anion Gap 10 mmol/L BUN 22 H (7-17) mg/dL Creatinine 0.58 (0.52-1.04) mg/dL Est GFR (CKD-EPI)AfAm >90 (>60 ml/min/1.73 sqM) Est GFR (CKD-EPI)NonAf >90 (>60 ml/min/1.73 sqM) Glucose 160 H (74-99) mg/dL Plasma Lactic Acid Jaden (0.7-2.0) mmol/L Calcium 8.8 (8.4-10.2) mg/dL Phosphorus 4.0 (2.5-4.5) mg/dL Magnesium 1.5 L (1.6-2.3) mg/dL Total Bilirubin 0.7 (0.2-1.3) mg/dL AST 44 H (14-36) U/L ALT 19 (4-34) U/L Alkaline Phosphatase 98 (38-126) U/L Total Protein 7.3 (6.3-8.2) g/dL Albumin 3.7 (3.5-5.0) g/dL TSH 1.620 (0.465-4.680) mIU/L Urine Color Light Yellow Urine Appearance Clear (Clear) Urine pH 5.0 (5.0-8.0) Ur Specific [place] 1.018 (1.001-1.035) Urine Protein Trace H (Negative) Urine Glucose (UA) Negative (Negative) Urine Ketones Negative (Negative) Urine Blood Trace H (Negative) Urine Nitrite Negative (Negative) Urine Bilirubin Negative (Negative) Urine Urobilinogen <2.0 (<2.0) mg/dL Ur Leukocyte Esterase Negative (Negative) Urine WBC 3 (0-5) /hpf Urine Bacteria Rare H (None) /hpf Urine Mucus Rare H (None) /hpf 11/14/23 Range/Units 18:42 WBC (3.8-10.6) k/uL RBC (3.80-5.40) m/uL Hgb (11.4-16.0) gm/dL Hct (34.0-46.0) % MCV (80.0-100.0) fL MCH (25.0-35.0) pg MCHC (31.0-37.0) g/dL RDW (11.5-15.5) % Plt Count (150-450) k/uL MPV Neutrophils % % Lymphocytes % % Monocytes % % Eosinophils % % Basophils % % Neutrophils # (1.3-7.7) k/uL Lymphocytes # (1.0-4.8) k/uL Monocytes # (0-1.0) k/uL Eosinophils # (0-0.7) k/uL Basophils # (0-0.2) k/uL Manual Slide Review Hypochromasia Anisocytosis Sodium (137-145) mmol/L Potassium (3.5-5.1) mmol/L Chloride (98-107) mmol/L Carbon Dioxide (22-30) mmol/L Anion Gap mmol/L BUN (7-17) mg/dL Creatinine (0.52-1.04) mg/dL Est GFR (CKD-EPI)AfAm (>60 ml/min/1.73 sqM) Est GFR (CKD-EPI)NonAf (>60 ml/min/1.73 sqM) Glucose (74-99) mg/dL Plasma Lactic Acid Jaden 1.5 (0.7-2.0) mmol/L Calcium (8.4-10.2) mg/dL Phosphorus (2.5-4.5) mg/dL Magnesium (1.6-2.3) mg/dL Total Bilirubin (0.2-1.3) mg/dL AST (14-36) U/L ALT (4-34) U/L Alkaline Phosphatase (38-126) U/L Total Protein (6.3-8.2) g/dL Albumin (3.5-5.0) g/dL TSH (0.465-4.680) mIU/L Urine Color Urine Appearance (Clear) Urine pH (5.0-8.0) Ur Specific [place] (1.001-1.035) Urine Protein (Negative) Urine Glucose (UA) (Negative) Urine Ketones (Negative) Urine Blood (Negative) Urine Nitrite (Negative) Urine Bilirubin (Negative) Urine Urobilinogen (<2.0) mg/dL Ur Leukocyte Esterase (Negative) Urine WBC (0-5) /hpf Urine Bacteria (None) /hpf Urine Mucus (None) /hpf Disposition <Yolanda Helton - Last Filed: 11/14/23 17:23> Decision Time: 21:05 <Eder Dotson - Last Filed: 11/14/23 21:05> Clinical Impression: Infusion reaction Disposition: ADMITTED IP TO THIS HOSP Condition: Fair Referrals: Desi López MD [Primary Care Provider] - 1-2 days
[2023-11-14 18:18] LABS: Anisocytosis Slight; Basophils % (A) 0 %; Eosinophils # (A) 0.1 k/uL (0-0.7); Eosinophils % (A) 1 %; HCT 28.9 % (34.0-46.0); HGB 9.3 gm/dL (11.4-16.0); Hypochromasia Slight; Lymphocytes # (A) 0.1 k/uL (1.0-4.8); Lymphocytes % (A) 2 %; MCH 29.3 pg (25.0-35.0); MCHC 32.2 g/dL (31.0-37.0); Mean Platelet Volume 10.6; Monocytes # (A) 0.3 k/uL (0-1.0); Monocytes % (A) 5 %; Neutrophils # (A) 5.8 k/uL (1.3-7.7); Neutrophils % (A) 92 %; RBC 3.17 m/uL (3.80-5.40); WBC 6.3 k/uL (3.8-10.6)
[2023-11-14 18:34] LABS: ALT 19 U/L (4-34); AST 44 U/L (14-36); African American GFR (CKD) >90 (>60 ml/min/1.73 sqM); Albumin 3.7 g/dL (3.5-5.0); Alkaline Phosphatase 98 U/L (38-126); Anion Gap 10 mmol/L; Blood Urea Nitrogen 22 mg/dL (7-17); Calcium 8.8 mg/dL (8.4-10.2); Carbon Dioxide 19 mmol/L (22-30); Chloride 108 mmol/L (98-107); Glucose 160 mg/dL (74-99); Magnesium 1.5 mg/dL (1.6-2.3); Non-African American GFR(CKD) >90 (>60 ml/min/1.73 sqM); Potassium 3.6 mmol/L (3.5-5.1); Sodium 137 mmol/L (137-145); Total Bilirubin 0.7 mg/dL (0.2-1.3); Total Protein 7.3 g/dL (6.3-8.2)
[2023-11-14] MEDS: SODIUM CHLORIDE 0.9% 1,000 ML IV STA (18:35)
[2023-11-14 18:50] LABS: Platelet Count 41 k/uL (150-450)
[2023-11-14 18:51] LABS: Appearance,Urine Clear (Clear); Bacteria,Urine Rare /hpf; Bilirubin,Urine Negative (Negative); Blood,Urine Trace (Negative); Color,Urine Light Yellow; Glucose,Urine (UA) Negative (Negative); Ketones,Urine Negative (Negative); Leukocyte Esterase,Urine Negative (Negative); Mucus,Urine Rare /hpf; Nitrite,Urine Negative (Negative); Protein,Urine Trace (Negative); Specific Gravity,Urine 1.018 (1.001-1.035); Urobilinogen,Urine <2.0 mg/dL (<2.0); WBC,Urine 3 /hpf (0-5)
[2023-11-14] MEDS: MAGNESIUM OXIDE 400 MG TAB PO STA (20:56)
[2023-11-14] MEDS: ACETAMINOPHEN TAB 500 MG TAB PO STA (20:59)
[2023-11-14] MEDS ORDERED: NALOXONE 0.4 MG/ML 1 ML VIAL IV PRN (21:01)
[2023-11-14] MEDS: SODIUM CHLORIDE 0.9% 1,000 ML IV SCH (21:08)
[2023-11-14] MEDS: CEFEPIME 2 GM in SODIUM CHLORIDE 0.9% 100 ML IVPB STA (21:11)
[2023-11-15] MEDS: SODIUM CHLORIDE 0.9% 500 ML DEHP FREE BAG IV STA (04:04)
[2023-11-15] MEDS: SODIUM CHLORIDE 0.9% 500 ML BAG IV STA (04:13)
[2023-11-15] MEDS ORDERED: SODIUM CHLORIDE 0.9% 500 ML 500 ML IV ONE (04:15)
[2023-11-15] MEDS: CEFEPIME 2 GM in SODIUM CHLORIDE 0.9% 100 ML IVPB SCH (18:10)
--- NOTE | 2023-11-15 20:36 | P.CONS ---
History of Present Illness - Reason for Consult Consult date: 11/15/23 lymphoma Requesting physician: Eder Dotson - Chief Complaint Mab infusion reaction - History of Present Illness Mrs. Horton is a 58 yo female pt of Dr. Almeida with a PMH of rt breast cancer diagnosed in December 2009. Clinical stage T2,N0, ER+(50%)/TX+(5%), HER2/AVEL ne gative. Treated at [facility] in [place] with 6 cycles of neoadjuvant TAC followed by right mastectomy and sentinel nodes biopsy in June 2010. Found to have residual T1b (0.6cm) invasive cancer in the breast. She received adjuvant radiation therapy. BRCA testing were negative. S he started tamoxifen in around spring. 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 CT CAP April 2014 revealed mediastinal nodes involvement measuring 2.4 x 1.3cm, paratracheal nodes measuring 1.4 x 0.8cm, mildly enlarged mesenteric nodes, enlarged portocaval nodes measuring 3.[address] CAP 04/20/2016 at [facility] revealed some progression of her adenopathies compared to prior CT scan in 2013. Breast cancer index done in August 2016 revealed low likelihood of recurrence, she was given option to switch to AI, continue tamoxifen or discontinue endocrine therapy all together. She initially decided to continue tamoxifen then, in October/2017, she decided to stop it and declined further endocrine therapy with AI. 08/11/[address] scan of neck,chest/abdomen/pelvis revealed adenopathies (per report, slightly larger than CT done in 2015). She cont on monitoring and CT CAP 08/14/2023 showed progression of her retroperitoneal nodes. 08/28/2023 PET scan showed low SUV uptake in generalized adenopathies, largest 3.6 cm in inguinal nodes. Did not think there was transformation to more aggressive lymphoma but, because of progressive LAD treatment was offered. She also was evaluated by Dr. Madison for microscopic hematuria, found to have a small bladder tumor so, she wanted that taken care of 1st. This was resected, she has f/u later this year. She was started on Rituxan and treanda 10/18. She was receiving C2 D1 in the office when she began to feel lightheaded. Treatment was stopped, fluids, symptoms resolved adn she was restarted. She was on treanda when she began shaking, treatment was stopped, VS showed low BP, she was sent into hospital for infusion reaction. She had a fever on admit of 102. 3F, pancultures pending, she has been started on abx. She denied SOB, tongue swelling, hives or itching. She has had some urinary urgency, no hematuria or dysuria. No cough, sinus c/o, or other s/s infection. She feels ok at this time. 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 BREAST CANCER 2009 WITH CHEMO AND RADIATION, STATES NEW DIAGNOSIS OF MARGINAL ZONE LYMPHOMA. ABNORMAL PAP SMEAR. History of Any Multi-Drug Resistant Organisms: None Reported Past Surgical History: Breast Surgery Additional Past Surgical History / Comment(s): Right breast mastectomy in 2009. Right leg wound surgery. Past Anesthesia/Blood Transfusion Reactions: Family History of Problems w/ Anesthesia, No Reported Reaction Additional Past Anesthesia/Blood Transfusion Reaction / Comm: FATHER HAD DIFFICULTY WAKING UP. Past Psychological History: No Psychological Hx Reported Smoking Status: Never smoker Past Alcohol Use History: Occasional Past Drug Use History: None Reported - Past Family History Father Family Medical History: Cancer Additional Family Medical History / Comment(s): Prostate and skin cancer. Mother Family Medical History: Cancer Additional Family Medical History / Comment(s): Skin cancer. Sister(s) Family Medical History: Cancer Additional Family Medical History / Comment(s): BREAST CA Medications and Allergies Home Medications Medication Instructions Recorded Confirmed Type No Known Home Medications 11/14/23 11/14/23 History Allergies Allergy/AdvReac Type Severity Reaction Status Date / Time codeine AdvReac Intermediate Vomiting Verified 11/14/23 21:06 Physical Exam Vitals: Vital Signs Temp Pulse Pulse Resp BP BP Pulse Ox 11/15/23 08:56 105 H 20 97/55 97 11/15/23 07:51 98.7 F 11/15/23 06:42 100.1 F H 104 H 16 93/45 96 11/15/23 04:00 99 F 97 18 83/49 98 11/15/23 00:57 99.6 F 105 H 18 84/42 96 11/14/23 20:55 102.3 F H 124 H 18 99/56 11/14/23 19:00 100.5 F H 125 H 20 111/54 98 11/14/23 18:45 20 11/14/23 18:31 125 H 20 110/60 100 11/14/23 17:16 100.8 F H 131 H 18 85/45 99 Intake and Output 11/14/23 11/15/23 11/15/23 22:59 06:59 14:59 Other: Weight 58.967 kg - Constitutional General appearance: average body habitus, cooperative, no acute distress - EENT Eyes: anicteric sclerae, EOMI ENT: hearing grossly normal, normal oropharynx - Neck Neck: no lymphadenopathy - Respiratory Respiratory: bilateral: CTA - Cardiovascular Rhythm: regular Heart sounds: normal: S1, S2 Abnormal Heart Sounds: no systolic murmur, no diastolic murmur, no rub, no S3 Gallop, no S4 Gallop, no click, no other foot Peripheral Edema: bilateral: Trace - Gastrointestinal General gastrointestinal: no absent bowel sounds, no decreased bowel sounds, no distended, no hepatomegaly, no hyperactive bowel sounds, normal bowel sounds, no organomegaly, no rigid, no scaphoid, soft, no splenomegaly, no tenderness, no umbilical hernia, no ventral hernia - Integumentary Integumentary: normal - Neurologic Neurologic: CNII-XII intact - Musculoskeletal Musculoskeletal: strength equal bilaterally - Psychiatric Psychiatric: A&O x's 3, appropriate affect, intact judgment & insight Results CBC & Chem 7: 11/14/23 17:43 11/14/23 17:43 Labs: Abnormal Lab Results - Last 24 Hours (Table) 11/14/23 11/14/23 11/14/23 Range/Units 17:34 17:43 17:43 RBC 3.17 L (3.80-5.40) m/uL Hgb 9.3 L (11.4-16.0) gm/dL Hct 28.9 L (34.0-46.0) % RDW 17.0 H (11.5-15.5) % Plt Count 41 L (150-450) k/uL Lymphocytes # 0.1 L (1.0-4.8) k/uL Chloride 108 H (98-107) mmol/L Carbon Dioxide 19 L (22-30) mmol/L BUN 22 H (7-17) mg/dL Glucose 160 H (74-99) mg/dL Magnesium 1.5 L (1.6-2.3) mg/dL AST 44 H (14-36) U/L Urine Protein Trace H (Negative) Urine Blood Trace H (Negative) Urine Bacteria Rare H (None) /hpf Urine Mucus Rare H (None) /hpf Assessment and Plan (1) Infusion reaction Current Visit: Yes Status: Acute Priority: High Code(s): T80.90XA - UNSP COMP FOLLOWING INFUSION AND THERAPEUTIC INJECTION, INIT SNOMED Code(s): 40058114 (2) Marginal zone lymphoma Current Visit: Yes Status: Acute Priority: Medium Code(s): C85.80 - OTH TYPES OF NON-HODGKIN LYMPHOMA, UNSPECIFIED SITE SNOMED Code(s): 908687422 (3) Breast cancer Current Visit: No Status: Chronic Priority: Low Code(s): C50.919 - MA LIGNANT NEOPLASM OF UNSP SITE OF UNSPECIFIED FEMALE BREAST SNOMED Code(s): 943910333 Plan: Infusion reaction -S/S of monoclonal antibody reaction. Treatment is fluids, supportive care, infusion was stopped -Do not suspect anaphylactic reaction -Urine and blood cultures pending to rule out an underlying infection as a possible exacerbation of immune reaction to Mab -Agree with antibiotics for now Marginal zone lymphoma -C2D1 of treatment was stopped due to infusion reaction -Pt can be challenged again with treatment with slow run time, close monitoring. Will see how pt recovers and have her f/u with Dr. Almeida prior to resuming any treatment Dr attests: I have seen and examined pt, performed H&P, developed impression and plan of care. Discussed with dictator. Agree with documentation, dictated as a scribe.
[2023-11-16] MEDS: PANTOPRAZOLE 40 MG TABLET PO SCH (08:40)
[2023-11-16 09:03] LABS: ALT 12 U/L (8-44); AST 16 U/L (13-35); Albumin 2.9 g/dL (3.8-4.9); Albumin/Globulin Ratio 1.04 Ratio (1.60-3.17); Alkaline Phosphatase 81 U/L (41-126); Blood Urea Nitrogen 8.5 mg/dL (9.0-27.0); Calcium 7.8 mg/dL (8.7-10.3); Carbon Dioxide 23.1 mmol/L (21.6-31.8); Chloride 109 mmol/L (96-109); Globulin 2.8 g/dL (1.6-3.3); Glucose 101 mg/dL (70-110); Magnesium 1.9 mg/dL (1.5-2.4); Potassium 3.6 mmol/L (3.5-5.5); Sodium 139 mmol/L (135-145); Total Bilirubin 0.5 mg/dL (0.3-1.2); Total Protein 5.7 g/dL (6.2-8.2)
[2023-11-16] MEDS: SALT AND SODA MOUTHWASH 1,000 ML PO SCH (09:42)
[2023-11-16 09:50] LABS: Basophils # (A) 0.01 X 10*3/uL (0.00-0.10); Basophils % (A) 0.2 %; Eosinophils # (A) 0.68 X 10*3/uL (0.04-0.35); Eosinophils % (A) 11.3 %; HCT 24.4 % (37.2-46.3); HGB 7.5 g/dL (12.0-15.0); Immature Platelet Fraction 4.6 % (1.1-6.1); Lymphocytes # (A) 0.86 X 10*3/uL (0.90-5.00); Lymphocytes % (A) 14.3 %; MCH 29.2 pg (27.0-32.0); MCHC 30.7 g/dL (32.0-37.0); MCV 94.9 FL (80.0-97.0); Mean Platelet Volume 11.1 FL (9.5-12.2); Monocytes # (A) 0.56 X 10*3/uL (0.20-1.00); Monocytes % (A) 9.3 %; NRBC Per 100 WBC 0 X 10*3/uL (0.00-0.01); Neutrophils # (A) 3.88 X 10*3/uL (1.80-7.70); Neutrophils % (A) 64.6 %; Platelet Count 52 X 10*3/uL (140-440); RBC 2.57 X 10*6/uL (4.10-5.20); RBC Morphology Normal (Normal); RDW 17.2 % (11.5-14.5); WBC 6.01 X 10*3/uL (4.50-10.00)
--- NOTE | 2023-11-16 13:06 | P.HPIM ---
History of Present Illness H&P Date: 11/15/23 Chief Complaint: Hypotension/palpitation/Rituxan reaction HISTORY OF PRESENT ILLNESS: This is a 58-year-old female 1 [place] patient with a previous medical history significant for right breast cancer in 2009 has been following with Dr. 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 Almeida, repeated CT scan of the chest abdomen and pelvis recently showed enlargement of the lymph nodes, and she had a PET scan that showed minimal increased uptake, she was started on Rituxan and Treanda on the of this month, while she was getting the infusion at Dr. Almeida's office she became hypotensive lightheaded start shaking, her temperature went up to 102, she was referred to the ER for evaluation after she was given multiple boluses of IV fluid in the office, patient was seen in the emergency department, she had temperature, she had a blood culture done, she was given 1 dose of cefepime 2 g IV piggyback x 1, blood cultures were done, she was admitted to the hospital she was started on IV fluid resuscitation in the form of normal saline, she is currently on 100 cc an hour, she is making good urine, patient was seen and in the emergency department and she is doing a bit better today, she continues to be somewhat hypotensive, her lactic acid is normal, her hemoglobin is down, we will continue to monitor the patient very closely, patient will be seen in consultation by hematology oncology for further recommendation at this time. REVIEW OF SYSTEMS: Constitutional: No documented fever, no chills, no night sweats. No weight change. No weakness, fatigue or lethargy. No daytime sleepiness. EENT: No headache. No blurred vision or double vision, no loss of vision. No loss of Hearing, no ringing in the ears, no dizziness. No nasal drainage or congestion. No epistaxis. No sore throat. Lungs: No shortness of breath, no cough, no sputum production. No wheezing. Reports dyspnea with activity. Cardiovascular: No chest pain, no lower extremity edema. No palpitations. No paroxysmal nocturnal dyspnea. No orthopnea. No lightheadedness or dizziness. No syncopal episodes. Abdominal: Reports abdominal pain. No nausea, vomiting. No diarrhea. No constipation. No bloody or tarry stools reports loss of appetite. Genitourinary: No dysuria, increased frequency, urgency. No urinary retention. Musculoskeletal: No myalgias. No muscle weakness, no gait dysfunction, no frequent falls. No back pain. No neck pain. Integumentary: No wounds, no lesions. No rash or pruritus. No unusual bruising. No change in hair or nails. Neurologic: No aphasia. No facial droop. No change in mentation. No head injury. No headache. No paralysis. No paresthesia. Psychiatric: No depression. No anxiety. No mood swings. Endocrine: No abnormal blood sugars. No weight change. PAST MEDICAL HISTORY: History of right breast cancer status postmastectomy neoadjuvant chemotherapy and radiation therapy and hormonal therapy. Marginal zone lymphoma. Recurrence of marginal zone lymphoma Bladder tumor status post resection. Osteopenia. Recurrent urinary tract infection. PAST SURGICAL HISTORY: Right mastectomy. Cystoscopy with bladder tumor resection. x 1 Colonoscopy 2010 SOCIAL HISTORY: Patient denies any history of smoking, no history of drinking or street drug use or abuse. FAMILY HISTORY: Father is alive 81-year-old with history of prostate cancer, hypertension, atria l fibrillation, mother is 81-year-old with history of hypertension and osteoporosis, patient has 1 sister 56-year-old with history of hypertension and breast cancer, patient has 1 son who is healthy. PHYSICAL EXAMINATION: General: HEENT: Head is atraumatic, normocephalic, pupils were equal round reactive to light and recommendation, extraocular muscle movement were intact, sclera nonicteric, conjunctivae were pale, mucous membranes of the mouth are somewhat dry. Neck: Supple, no JVP, normal carotid upstroke bilaterally, no lymphadenopathy. Chest: Decreased breath sounds at the bases, few rhonchi, no expiratory wheezes wheezes, no chest wall tenderness, no intercostal retractions. Heart: First heart sound is normal, second heart sound is normal there is no gallop or murmur. Abdomen: Soft, nontender, nondistended, positive bowel sounds. Extremities: There is no edema no calf tenderness DP +2 bilaterally. Neurologic examination: Patient is awake alert and oriented x3, cranial nerves I I-12 appear grossly intact, muscle power were 5 out of 5 in upper extremities and 5 out of 5 in bilateral lower extremities, deep tendon reflexes normal bilaterally. ASSESSMENT AND PLAN: 1. Infusion reaction without evidence of anaphylactic reaction. Continue IV fluid resuscitation, continue supportive care, and hematology oncology consultation appreciated, continue IV fluid in the form of normal saline at 100 cc an hour, we will follow-up with the patient very closely, monitor the patient CBC and CMP over the next 24 hours. 2. Acute febrile illness blood cultures were done started the patient on cefepime 2 g IV piggyback every 8 hours, await the final result of the blood culture. Patient defervesced 3. History of breast cancer status post right mastectomy and radiation therapy along with hormonal therapy. 4. Anemia likely related to recent treatment. 5. Thrombocytopenia. Monitor the patient CBC. Avoid heparin products. 6. Anxiety disorder. Stable at this time. 7. DVT prophylaxis. Early ambulation. 8. GI prophylaxis. Protonix 40 mg orally once every day. 9. Admit to inpatient. Estimated length of stay 2 midnights. 10. Full code. 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 BREAST CANCER 2009 WITH CHEMO AND RADIATION, STATES NEW DIAGNOSIS OF MARGINAL ZONE LYMPHOMA. ABNORMAL PAP SMEAR. History of Any Multi-Drug Resistant Organisms: None Reported Past Surgical History: Breast Surgery Additional Past Surgical History / Comment(s): Right breast mastectomy in 2009. Right leg wound surgery. Past Anesthesia/Blood Transfusion Reactions: Family History of Problems w/ Anesthesia, No Reported Reaction Additional Past Anesthesia/Blood Transfusion Reaction / Comment(s): FATHER HAD DIFFICULTY WAKING UP. Past Psychological History: No Psychological Hx Reported Smoking Status: Never smoker Past Alcohol Use History: Occasional Past Drug Use History: None Reported - Past Family History Father Family Medical History: Cancer Additional Family Medical History / Comment(s): Prostate and skin cancer. Mother Family Medical History: Cancer Additional Family Medical History / Comment(s): Skin cancer. Sister(s) Family Medical History: Cancer Additional Family Medical History / Comment(s): BREAST CA Medications and Allergies Home Medications Medication Instructions Recorded Confirmed Type No Known Home Medications 11/14/23 11/14/23 History Allergies Allergy/AdvReac Type Severity Reaction Status Date / Time codeine AdvReac Intermediate Vomiting Verified 11/14/23 21:06 Physical Exam Vitals: Vital Signs Temp Pulse Pulse Resp BP BP Pulse Ox 11/15/23 13:59 98 16 105/56 97 11/15/23 12:01 100 16 91/52 98 11/15/23 10:10 101 H 18 90/45 97 11/15/23 08:56 105 H 20 97/55 97 11/15/23 07:51 98.7 F 11/15/23 06:42 100.1 F H 104 H 16 93/45 96 11/15/23 04:00 99 F 97 18 83/49 98 11/15/23 00:57 99.6 F 105 H 18 84/42 96 11/14/23 20:55 102.3 F H 124 H 18 99/56 11/14/23 19:00 100.5 F H 125 H 20 111/54 98 11/14/23 18:45 20 11/14/23 18:31 125 H 20 110/60 100 11/14/23 17:16 100.8 F H 131 H 18 85/45 99 Results CBC & Chem 7: 11/16/23 05:01 11/16/23 05:01 Labs: Abnormal Lab Results - Last 24 Hours (Table) 11/14/23 11/14/23 11/14/23 Range/Units 17:34 17:43 17:43 RBC 3.17 L (3.80-5.40) m/uL Hgb 9.3 L (11.4-16.0) gm/dL Hct 28.9 L (34.0-46.0) % RDW 17.0 H (11.5-15.5) % Plt Count 41 L (150-450) k/uL Lymphocytes # 0.1 L (1.0-4.8) k/uL Chloride 108 H (98-107) mmol/L Carbon Dioxide 19 L (22-30) mmol/L BUN 22 H (7-17) mg/dL Glucose 160 H (74-99) mg/dL Magnesium 1.5 L (1.6-2.3) mg/dL AST 44 H (14-36) U/L Urine Protein Trace H (Negative) Urine Blood Trace H (Negative) Urine Bacteria Rare H (None) /hpf Urine Mucus Rare H (None) /hpf
--- NOTE | 2023-11-16 17:57 | P.PN ---
Subjective Progress Note Date: 11/16/23 Principal diagnosis: Mab infusion reaction In f/u pt reports persistent low BP for her, will feel dizzy at times. Had a sore throat last night but, that is resolved today after she requested salt and soda rinse. Denies fever, chill, wheezing, rash. No other c/o at this time. Objective - Vital Signs Vital signs: Vital Signs Temp 98.0 F 11/16/23 12:33 Pulse 87 11/16/23 16:19 Resp 16 11/16/23 12:33 BP 101/66 11/16/23 16:19 Pulse Ox 97 11/16/23 12:33 FiO2 Intake & Output 11/15/23 11/16/23 11/16/23 18:59 06:59 18:59 Weight 58.967 kg Other: Voiding Method Toilet Toilet # Voids 2 - Constitutional General appearance: Present: average body habitus, cooperative, no acute distress - EENT Eyes: Present: anicteric sclerae, EOMI ENT: Present: hearing grossly normal, normal oropharynx - Respiratory Respiratory: bilateral: CTA - Cardiovascular Rhythm: regular Heart sounds: normal: S1, S2 Abnormal Heart Sounds: Absent: systolic murmur, diastolic murmur, rub, S3 Gallop, S4 Gallop, click, other - Gastrointestinal General gastrointestinal: Present: normal bowel sounds, soft - Integumentary Integumentary: Present: normal - Neurologic Neurologic: Present: CNII-XII intact - Musculoskeletal Musculoskeletal: Present: strength equal bilaterally - Psychiatric Psychiatric: Present: A&O x's 3, appropriate affect, intact judgment & insight - Labs CBC & Chem 7: 11/16/23 05:01 11/16/23 05:01 Labs: Abnormal Lab Results - Last 24 Hours (Table) 11/16/23 11/16/23 Range/Units 05:01 05:01 RBC 2.57 L (4.10-5.20) X 10*6/uL Hgb 7.5 L (12.0-15.0) g/dL Hct 24.4 L (37.2-46.3) % MCHC 30.7 L (32.0-37.0) g/dL RDW 17.2 H (11.5-14.5) % Plt Count 52 L (140-440) X 10*3/uL Lymphocytes # 0.86 L (0.90-5.00) X 10*3/uL Eosinophils # 0.68 H (0.04-0.35) X 10*3/uL BUN 8.5 L (9.0-27.0) mg/dL Creatinine 0.5 L (0.6-1.5) mg/dL Calcium 7.8 L (8.7-10.3) mg/dL Total Protein 5.7 L (6.2-8.2) g/dL Albumin 2.9 L (3.8-4.9) g/dL Albumin/Globulin Ratio 1.04 L (1.60-3.17) Ratio Microbiology - Last 24 Hours (Table) 11/14/23 18:30 Blood Culture - Preliminary Blood Assessment and Plan (1) Infusion reaction Current Visit: Yes Status: Acute Priority: High Code(s): T80.90XA - UNSP COMP FOLLOWING INFUSION AND THERAPEUTIC INJECTION, INIT SNOMED Code(s): 88112762 (2) Marginal zone lymphoma Current Visit: Yes Status: Acute Priority: Medium Code(s): C85.80 - OTH TYPES OF NON-HODGKIN LYMPHOMA, UNSPECIFIED SITE SNOMED Code(s): 837785595 (3) Breast cancer Current Visit: No Status: Chronic Priority: Low Code(s): C50.919 - MALIGNANT NEOPLASM OF UNSP SITE OF UNSPECIFIED FEMALE BREAST SNOMED Code(s): 879848029 (4) Bicytopenia Current Visit: Yes Status: Acute Priority: Medium Code(s): D75.89 - OTHER SPECIFIED DISEASES OF BLOOD AND BLOOD-FORMING ORGANS SNOMED Code(s): 01194503 Plan: Infusion reaction -S/S of monoclonal antibody reaction. Treatment is fluids, supportive care, infusion was stopped -Do not suspect anaphylactic reaction -Urine and blood cultures pending to rule out an underlying infection as a possible exacerbation of immune reaction to Mab -Agree with antibiotics for now Marginal zone lymphoma -C2D1 of treatment was stopped due to infusion reaction -Pt can be challenged again with treatment with slow run time, close monitoring. Will see how pt recovers and have her f/u with Dr. Almeida prior to resuming any treatment Chemo induced bicytopenia -From chemo, Hx of chemo XRT, infusion reaction -No acute interventions -CBC daily -Transfuse for Hgb <7 or plt < 10,000 or if symptomatic C/O low BP. Orthostatic BP ordered. VS Q 4 hours.
--- NOTE | 2023-11-16 19:51 | P.PN ---
Subjective Progress Note Date: 11/16/23 HISTORY OF PRESENT ILLNESS: This is a 58-year-old female 1 [place] patient with a previous medical h istory significant for right breast cancer in 2009 has been following with Dr. 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 Almeida, repeated CT scan of the chest abdomen and pelvis recently showed enlargement of the lymph nodes, and she had a PET scan that showed minimal increased uptake, she was started on Rituxan and Treanda on the of this month, while she was getting the infusion at Dr. Almeida's office she became hypotensive lightheaded start shaking, her temperature went up to 102, she was referred to the ER for evaluation after she was given multiple boluses of IV fluid in the office, patient was seen in the emergency department, she had temperature, she had a blood culture done, she was given 1 dose of cefepime 2 g IV piggyback x 1, blood cultures were done, she was admitted to the hospital she was started on IV fluid resuscitation in the form of normal saline, she is currently on 100 cc an hour, she is making good urine, patient was seen and in the emergency department and she is doing a bit better today, she continues to be somewhat hypotensive, her lactic acid is normal, her hemoglobin is down, we will continue to monitor the patient very closely, patient will be seen in consultation by hematology oncology for further recommendation at this time. 11/15: Patient is sitting up in the bed no apparent distress, she is feeling better today, her hemoglobin dropping to 7.5, she continued to have throm bocytopenia as well, this is likely related to her treatment, will continue to monitor the patient very closely, transfuse for hemoglobin less than 7, transfuse for platelet less than 10,000, hematology oncology is following, blood culture and urine cultures pending, continue IV biotic, patient blood pressure is better we will check orthostatic changes at this time, if her blood pressure remained stable and her counts are stable she can be discharged home in the next 24 hours REVIEW OF SYSTEMS: Constitutional: No documented fever, no chills, no night sweats. No weight change. No weakness, fatigue or lethargy. No daytime sleepiness. EENT: No headache. No blurred vision or double vision, no loss of vision. No loss of Hearing, no ringing in the ears, no dizziness. No nasal drainage or congestion. No epistaxis. No sore throat. Lungs: No shortness of breath, no cough, no sputum production. No wheezing. Reports dyspnea with activity. Cardiovascular: No chest pain, no lower extremity edema. No palpitations. No paroxysmal nocturnal dyspnea. No orthopnea. No lightheadedness or dizziness. No syncopal episodes. Abdominal: Reports abdominal pain. No nausea, vomiting. No diarrhea. No constipation. No bloody or tarry stools reports loss of appetite. Genitourinary: No dysuria, increased frequency, urgency. No urinary retention. Musculoskeletal: No myalgias. No muscle weakness, no gait dysfunction, no frequent falls. No back pain. No neck pain. Integumentary: No wounds, no lesions. No rash or pruritus. No unusual bruising. No change in hair or nails. Neurologic: No aphasia. No facial droop. No change in mentation. No head injury. No headache. No paralysis. No paresthesia. Psychiatric: No depression. No anxiety. No mood swings. Endocrine: No abnormal blood sugars. No weight change. PHYSICAL EXAMINATION: General: HEENT: Head is atraumatic, normocephalic, pupils were equal round reactive to light and recommendation, extraocular muscle movement were intact, sclera nonicteric, conjunctivae were pale, mucous membranes of the mouth are somewhat dry. Neck: Supple, no JVP, normal carotid upstroke bilaterally, no lymphadenopathy. Chest: Decreased breath sounds at the bases, few rhonchi, no expiratory wheezes wheezes, no chest wall tenderness, no intercostal retractions. Heart: First heart sound is normal, second heart sound is normal there is no gallop or murmur. Abdomen: Soft, nontender, nondistended, positive bowel sounds. Extremities: There is no edema no calf tenderness DP +2 bilaterally. Neurologic examination: Patient is awake alert and oriented x3, cranial nerves II-12 appear grossly intact, muscle power were 5 out of 5 in upper extremities and 5 out of 5 in bilateral lower extremities, deep tendon reflexes normal bilaterally. ASSESSMENT AND PLAN: 1. Infusion reaction without evidence of anaphylactic reaction. Continue IV fl uid resuscitation, continue supportive care, patient appears to be a lot better today than yesterday. 2. Acute febrile illness blood cultures were done started the patient on cefepime 2 g IV piggyback every 8 hours, await the final result of the blood culture. Patient defervesced 3. Severe symptomatic hypotension likely related to infusion reaction of rituximab. Appears to be better at this time, continue IV fluid resuscitation, monitor the patient blood pressure monitor orthostatic changes. If the blood pressure continues to be better she can be discharged home in the next 24 hours. 4. Anemia and thrombocytopenia likely related to treatment monitor the patient CBC over the next 24 hours, transfuse for hemoglobin less than 7. 5. History of breast cancer status post right mastectomy and radiation therapy along with hormonal therapy. 6. Anemia likely related to recent treatment. 7. Thrombocytopenia. Monitor the patient CBC. Avoid heparin products. 8. Anxiety disorder. Stable at this time. 9. DVT prophylaxis. Early ambulation. 10. GI prophylaxis. Protonix 40 mg orally once every day. 11. Home tomorrow morning. Objective - Vital Signs Vital signs: Vital Signs Temp 98.0 F 11/16/23 12:33 Pulse 87 11/16/23 16:19 Resp 16 11/16/23 12:33 BP 101/66 11/16/23 16:19 Pulse Ox 97 11/16/23 12:33 FiO2 Intake & Output 11/16/23 11/16/23 11/17/23 06:59 18:59 06:59 Other: Voiding Method Toilet Toilet # Voids 2 - Labs CBC & Chem 7: 11/16/23 05:01 11/16/23 05:01 Labs: Abnormal Lab Results - Last 24 Hours (Table) 11/16/23 11/16/23 Range/Units 05:01 05:01 RBC 2.57 L (4.10-5.20) X 10*6/uL Hgb 7.5 L (12.0-15.0) g/dL Hct 24.4 L (37.2-46.3) % MCHC 30.7 L (32.0-37.0) g/dL RDW 17.2 H (11.5-14.5) % Plt Count 52 L (140-440) X 10*3/uL Lymphocytes # 0.86 L (0.90-5.00) X 10*3/uL Eosinophils # 0.68 H (0.04-0.35) X 10*3/uL BUN 8.5 L (9.0-27.0) mg/dL Creatinine 0.5 L (0.6-1.5) mg/dL Calcium 7.8 L (8.7-10.3) mg/dL Total Protein 5.7 L (6.2-8.2) g/dL Albumin 2.9 L (3.8-4.9) g/dL Albumin/Globulin Ratio 1.04 L (1.60-3.17) Ratio Microbiology - Last 24 Hours (Table) 11/14/23 18:30 Blood Culture - Preliminary Blood
[2023-11-17 07:52] VITALS: RESP 20
[2023-11-17] MEDS: ACETAMINOPHEN TAB 325 MG TAB PO PRN (08:56)
[2023-11-17 09:50] LABS: Basophils # (A) 0.01 X 10*3/uL (0.00-0.10); Basophils % (A) 0.3 %; Eosinophils # (A) 0.32 X 10*3/uL (0.04-0.35); Eosinophils % (A) 8.4 %; HCT 24.7 % (37.2-46.3); HGB 7.6 g/dL (12.0-15.0); Immature Platelet Fraction 7.1 % (1.1-6.1); Lymphocytes # (A) 0.74 X 10*3/uL (0.90-5.00); Lymphocytes % (A) 19.5 %; MCHC 30.8 g/dL (32.0-37.0); MCV 94.3 FL (80.0-97.0); Mean Platelet Volume 11.4 FL (9.5-12.2); Monocytes # (A) 0.48 X 10*3/uL (0.20-1.00); Monocytes % (A) 12.7 %; NRBC Per 100 WBC 0 X 10*3/uL (0.00-0.01); Neutrophils # (A) 2.23 X 10*3/uL (1.80-7.70); Neutrophils % (A) 58.8 %; Platelet Count 49 X 10*3/uL (140-440); RBC 2.62 X 10*6/uL (4.10-5.20); RBC Morphology Normal (Normal); RDW 16.8 % (11.5-14.5); WBC 3.79 X 10*3/uL (4.50-10.00)
[2023-11-17 12:10] VITALS: BP 101/65; PULSE 86; TEMP 97.6
== END 2023-11-17 14:20 | disposition home or self-care (01) | DRG 312 ==
LOC: EC 16:48 → 5NMEDONC 21:02
PROVIDERS: ADMIT Internal Medicine; ATTEND Internal Medicine
DX: I95.2 Hypotension due to drugs (principal); C85.98 Non-Hodgkin lymphoma, unspecified, lymph nodes of multiple sites; T45.1X5A Adverse effect of antineoplastic and immunosuppressive drugs, initial encounter; I95.9 Hypotension, unspecified; D69.59 Other secondary thrombocytopenia; D64.81 Anemia due to antineoplastic chemotherapy; F41.9 Anxiety disorder, unspecified; R39.15 Urgency of urination; M85.80 Other specified disorders of bone density and structure, unspecified site; Z85.3 Personal history of malignant neoplasm of breast; Z86.018 Personal history of other benign neoplasm; Z92.3 Personal history of irradiation; Z87.440 Personal history of urinary (tract) infections; Z88.5 Allergy status to narcotic agent; Y92.538 Other ambulatory health services establishments as the place of occurrence of the external cause
CPT/HCPCS: 36415; 80053; 81001; 83605; 83735; 84100; 84443; 85025; 87040; 87086; 93005; 96361; 96365; 99285

== ENCOUNTER 2023-12-07 11:30 | Day surgery (SDC) | payer OTHER ==
[2023-12-06 10:26] VITALS: BMI 22.4
[2023-12-07 12:03] VITALS: TEMP 97.6
[2023-12-07] MEDS: IV FLUID CONTINUATION 1,000 ML IV ONE (12:03)
[2023-12-07] MEDS: LACTATED RINGERS 1,000 ML IV SCH (12:05)
[2023-12-07] MEDS ORDERED: LIDOCAINE 1% INJ 10MG/ML (20 ML MDV) ONE (12:25)
[2023-12-07] MEDS ORDERED: PROPOFOL 10 MG/ML 20 ML VIAL IV ONE (12:25)
--- NOTE | 2023-12-07 12:33 | P.GSHP ---
History of Present Illness H&P Date: 12/07/23 Chief Complaint: Abnormal stool test 58-year-old female with personal history of breast cancer and lymphoma. Here today for colonoscopy. Recent Cologuard test was abnormal. Past Medical History Past Medical History: Cancer Additional Past Medical History / Comment(s): KAWASAKI DISEASE A CHILD, ANEMIA, BREAST CANCER 2009 WITH CHEMO AND RADIATION, STATES NEW DIAGNOSIS OF MARGINAL ZONE LYMPHOMA. History of Any Multi-Drug Resistant Organisms: None Reported Past Surgical History: Bladder Surgery, Breast Surgery Additional Past Surgical History / Comment(s): Right breast mastectomy in 2010, Right leg wound surgery, bladder tumor removed Past Anesthesia/Blood Transfusion Reactions: Family History of Problems w/ Anesthesia, No Reported Reaction Additional Past Anesthesia/Blood Transfusion Reaction / Comment(s): FATHER HAD DIFFICULTY WAKING UP. Past Psychological History: No Psychological Hx Reported Smoking Status: Never smoker Past Alcohol Use History: Occasional Past Drug Use History: None Reported - Past Family History Father Family Medical History: Cancer Additional Family Medical History / Comment(s): Prostate and skin cancer. Mother Family Medical History: Cancer Additional Family Medical History / Comment(s): Skin cancer. Sister(s) Family Medical History: Cancer Additional Family Medical History / Comment(s): BREAST CA Medications and Allergies Home Medications Medication Instructions Recorded Confirmed Type No Known Home Medications 11/14/23 12/07/23 History Allergies Allergy/AdvReac Type Severity Reaction Status Date / Time codeine AdvReac Intermediate Vomiting Verified 12/07/23 12:03 Surgical - Exam Vital Signs Temp Pulse Resp BP Pulse Ox 97.6 F 101 H 16 118/58 97 12/07/23 12:12/07/23 12:12/07/23 12:12/07/23 12:12/07/23 12:01 Physical exam: General: Well-developed, well-nourished HEENT: Normocephalic, sclerae nonicteric Abdomen: Nontender, nondistended Extremities: No edema Neuro: Alert and oriented Assessment and Plan (1) Abnormal stool test Narrative/Plan: Will proceed with colonoscopy at this time. Current Visit: Yes Status: Acute Code(s): R19.5 - OTHER FECAL ABNORMALITIES SNOMED Code(s): 206970998
--- NOTE | 2023-12-07 12:53 | P.PCN ---
Date of Procedure: 12/07/23 Procedure(s) Performed: PREOPERATIVE DIAGNOSIS: Abnormal Cologuard POSTOPERATIVE DIAGNOSIS: Hepatic flexure polyp, diverticulosis PROCEDURE: Colonoscopy with snare polypectomy ANESTHESIA: MAC SURGEON: Jace Hdez M.D. SPECIMENS: Polyp ENDOSCOPIC PROCEDURE: The patient was placed on the endoscopy table in the left decubitus position. The Olympus colonoscope was inserted into the anus and passed under direct visualization to the base of the cecum. The appendiceal orifice was visualized. From that point the scope was slowly withdrawn inspecting all surfaces carefully. There were no neoplastic inflammatory or polypoid lesions throughout the cecum or ascending colon. At the hepatic flexure a small polyp was seen and removed using the snare with cautery technique. The remainder of the transverse descending sigmoid and rectum appeared normal. There was mild left-sided diverticulosis. Digital rectal examination was normal. The patient was taken to the recovery room in stable condition per anesthesia guidelines. RECOMMENDATIONS: Await biopsy results. Will contact patient with timing of next colonoscopy.
[2023-12-07 13:15] VITALS: BP 102/55; PULSE 91; RESP 18
== END 2023-12-07 13:48 | disposition home or self-care (01) ==
LOC: ORWHC2ENDO 11:30
PROVIDERS: ATTEND Surgery
DX: K63.5 Polyp of colon (principal); K57.30 Diverticulosis of large intestine without perforation or abscess without bleeding; M85.80 Other specified disorders of bone density and structure, unspecified site; Z85.3 Personal history of malignant neoplasm of breast; Z85.72 Personal history of non-Hodgkin lymphomas; Z80.3 Family history of malignant neoplasm of breast; Z86.59 Personal history of other mental and behavioral disorders; Z80.42 Family history of malignant neoplasm of prostate; Z80.8 Family history of malignant neoplasm of other organs or systems; Z88.5 Allergy status to narcotic agent; Z92.21 Personal history of antineoplastic chemotherapy; Z79.899 Other long term (current) drug therapy
CPT/HCPCS: 45385; J2001; J2704; 88305

== ENCOUNTER → 2024-02-22 | Outpatient (CLI) | payer OTHER ==
[2024-02-22 12:58] LABS: African American GFR (CKD) >90 (>60 ml/min/1.73 sqM); Blood Urea Nitrogen 12 mg/dL (7-17); Non-African American GFR(CKD) 81 (>60 ml/min/1.73 sqM)
--- NOTE | 2024-02-22 17:13 | CT ---
EXAMINATION TYPE: CT ChestAbdPelvis w con CT DLP: 530.9 mGycm, Automated exposure control for dose reduction was used. DATE OF EXAM: 02/22/2024 2:05 PM COMPARISON: CT chest abdomen pelvis 08/11/2020 CLINICAL INDICATION:Female, 58 years old with history of C85.98 LYMPHOMA; [facility], f/u lymphoma Technique: Multiple axial images of the chest, abdomen, and pelvis were obtained following the intrav enous administration of 100 mL Isovue-300. Oral contrast was administered. Two-dimensional coronal an d sagittal reconstructions were obtained. Findings: CHEST: LUNGS/ PLEURA: Right apical pleural-parenchymal scarring. Anterior right upper and middle lobe reticu lar opacities likely representing post radiation changes. No pleural effusion or pneumothorax. No yahaira picious pulmonary nodule or mass. AIRWAY: Patent and unremarkable.. HEART: Size within normal limits. No pericardial effusion. MEDIASTINUM: No evidence of adenopathy. VASCULATURE: No aortic aneurysm. MUSCULOSKELETAL: No acute osseous abnormalities. No aggressive osseous lesion. SOFT TISSUES/LYMPH NODES: Post surgical changes from right mastectomy. No enlarged right axillary lym ph nodes identified. Enlarged left axillary lymph nodes measuring up to 1.1 cm short axis (series 3, image 11). LOWER NECK: Enlarged left supraclavicular lymph nodes measuring up to 1.3 cm short axis (series 3, im age 8). ABDOMEN: ABDOMEN LIVER: Unremarkable GALLBLADDER AND BILE DUCTS: Cholelithiasis. No surrounding inflammatory changes. No biliary ductal di latation. PANCREAS: Unremarkable. SPLEEN: Unremarkable. ADRENAL GLANDS: Unremarkable. KIDNEYS AND URETERS: No evidence of hydronephrosis or renal calculus. The kidneys enhance symmetrical ly. Contrast is demonstrated within both collecting systems on the delayed phase. PELVIS BLADDER: Unremarkable REPRODUCTIVE: Unremarkable. ABDOMEN & PELVIS STOMACH AND BOWEL: Stomach and duodenum are unremarkable. No focal bowel wall thickening or surroundi ng inflammatory changes. Enteric contrast reaches the ascending colon. No evidence of bowel obstructi on. PERITONEUM: No evidence of pneumoperitoneum or free fluid. VASCULATURE: No evidence of aortic aneurysm. MUSCULOSKELETAL: No acute osseous abnormalities. No aggressive osseous lesion. Degenerative disc dise ase most pronounced at L5-S1. LYMPH NODES: Enlarged periportal lymph node measuring 1.0 cm short axis (series 3, image 63). Multipl e enlarged retroperitoneal periaortic lymph nodes present including a right periaortic lymph node patti suring 2.0 cm short axis (series 3, image 76). Bilateral iliac chain enlarged lymph nodes with exam i ncluding a right external iliac chain lymph node measuring 1.3 cm short axis (series 3, image 96). Le ft external iliac chain lymph node measuring 1.2 cm short axis (series 3, image 101). Bilateral enlar ged inguinal lymph nodes with largest on the left measuring 1 cm short axis (series 3, image 110). La rgest on the right measures 1.4 cm short axis (series 3, image 111). Additional partially visualized right anterior upper thigh enhancing mass measuring 3.8 x 2.3 cm (series 3, image 125). Previously me asured 4.3 x 3.3 centimeters. Multiple prominent mesenteric lymph nodes identified largest measuring 9 mm in short axis (series 3, image 85). SOFT TISSUE/ABDOMINAL WALL: Unremarkable IMPRESSION: Extensive adenopathy throughout the visualized lower neck, left axilla, and abdomen/pelvis related to known lymphoma. [facility], , 02/22/2024 5:11 PM
== END ==
LOC: RADCTMAIN 12:01
PROVIDERS: ATTEND Internal Medicine Hematology & Oncology
CPT/HCPCS: 36415; 71260; 74177; 82565; 84520

== ENCOUNTER → 2024-04-24 | Outpatient (CLI) | payer OTHER ==
--- NOTE | 2024-04-24 14:10 | BD ---
EXAMINATION TYPE: Axial Bone Density DATE OF EXAM: 04/24/2024 CLINICAL HISTORY: 58 years old Female. ICD-10 CODE: Z13.820 OSTEO SCR , Additional History: Height: 63 in Weight: 139 lbs FRAX RISK QUESTIONS: Family History (Parent hip fracture): yes mother Secondary Osteoporosis: 3. Menopause before 45: age 44 EXAM MEASUREMENTS: Bone mineral densitometry was performed using the YES.TAP System. Bone mineral density as measured about the Lumbar spine is: ----- L1-L4(G/cm2): 1.080 T Score Values are as follows: ----- L1: 0.1 ----- L2: -0.5 ----- L3: -1.2 ----- L4: -1.6 ----- L1-L4: -0.8 Z Score Values are as follows: ----- L1: 1.2 ----- L2: 0.6 ----- L3: -0.2 ----- L4: -0.6 ----- L1-L4: 0.2 Bone mineral density has: Decreased -1.5% since study of: 04/28/2021 Bone mineral density about the R hip (g/cm2): 0.954 Bone mineral density about the L hip (g/cm2): 0.956 T Score values are as follows: -----R Neck: -1.1 -----L Neck: -1.1 -----R Total: -0.4 -----L Total: -0.4 Z Score values are as follows: -----R Neck: 0.1 -----L Neck: 0.1 -----R Total: 0.4 -----L Total: 0.4 Bone mineral density has: Decreased -0.6% since study of: 04/28/2021 FRAX%s: The graph provided illustrates a 16.6% chance for a major osteoporotic fx and a 0.6% chance f or the hips probability for fx in 10 years time. IMPRESSION: Normal (Values between +1 and -1 indicate normal bone mass). Consider repeating this study in 5 year s or sooner if there is some new clinical indication. NOTE: T-SCORE=SD OF THE YOUNG ADULT MEAN. [facility], , 04/24/2024 2:08 PM
== END | disposition home or self-care (01) ==
LOC: RADBDWWP 07:53
PROVIDERS: ATTEND Internal Medicine
DX: Z13.820 Encounter for screening for osteoporosis (principal)
CPT/HCPCS: 77080